=== PATIENT | female | born 1935 | race Two or more races ===

== ENCOUNTER 2024-07-09 21:16 | Inpatient (IN) | payer OTHER ==
[~2024-07-09] VITALS: Ht 154.9 cm; Wt 45.6 kg
--- NOTE | 2024-07-09 22:05 | ED.PDOC ---
History of Present Illness HPI Comments 89 y/o F is BIBA from home for G-tube replacement following dislodgement, today. Per EMS report, family called after endorsing on noticing patient's G-tube being dislodged, with some controlled mild bleeding around site area. Mechanism of dislodgement is unknown. Patient is nonverbal and nonambulatory at baseline and has no endorsed associated symptoms. Vitals were stable and within normal limits, with exception of patient being tachycardic in the 110's range. 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 Past Medical History PAST MEDICAL HISTORY: Anemia, Dementia Past Medical History (Other): PNA Surgical History: Pacemaker Surgical History (Other): PEG placement [employer]ING [employer]PARTMENT SUPERVISOR History: No Pertinent [employer]MENT SUPERVISOR History Family History Family History: Unknown Social History Smoker: Non-Smoker Alcohol: Denies ETOH Use Drugs: Denies Drug Use All Other Systems: Reviewed and Negative (Comprehensive systems review obtained and negative except for what is stated in the HPI.) Physical Exam General Appearance: No Apparent Distress, Normal HEENT: Normal ENT Inspection, Pharynx Normal, TMs Normal Neck: Full Range of Motion, Non-Tender, Normal, Normal Inspection Respiratory: Chest Non-Tender, Lungs Clear, No Accessory Muscle Use, No Respiratory Distress, Normal Breath Sounds Cardiovascular: No Edema, No JVD, No Murmur, No Gallop, Normal Peripheral Pulses, Regular Rate/Rhythm Breast Exam: Deferred Gastrointestinal: No Organomegaly, Non Tender, No Pulsatile Mass, Normal Bowel Sounds, Soft Genitalia: Deferred Pelvic: Deferred Rectal: Deferred Extremities: No calf tenderness, Normal capillary refill, Normal inspection, Normal range of motion, Non-tender, No pedal edema Musculoskeletal : Apperance: Normal Neurologic: Alert, 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 Was a procedure done?: No Differential Dx Considerations may include: G-tube dislodgment X-Ray, Labs, Meds, VS Vital Signs Date Time Temp Pulse Resp B/P (MAP) Pulse Ox O2 Delivery O2 Flow Rate FiO2 07/09/24 21:33 99.0 117 99 150/87 (108) 95 99.0 Time of 1ST Reevaluation: 22:00 Reevaluation 1ST: Unchanged Patient Education/Counseling: Other (patient is nonverbal and nonambulatory) Family Education/Counseling: Treatment, Need For Follow Up Additional Information Previous visits reviewed: August 20, 2022 encounter for acute metabolic encephalopathy The following tests were ordered, and results were reviewed by me: Additional Information was gathered from interviewing the following independent historians: EMS I reviewed and agreed with the following test results read by other providers: I discussed treatment and results with medical personnel and: family Departure 1 Departure Time of Disposition: 23:26 (Attempted to place a G-tube. However we do not have the correct G-tube size for the patient in the ER. We will admit patient for further workup and expert consultation) Impression: Primary Impression: Complication of gastrostomy tube Disposition: ADMITTED INPATIENT Admit to: Med Surg Condition: Serious e-Prescriptions No Active Prescriptions or Reported Meds Critical Care Note Critical Care Time?: No Stability Stability form required: No Heart Score Heart Score: Heart Score Response (Comments) Value History N/A 0 EKG N/A 0 Age N/A 0 Risk Factors N/A 0 Troponin N/A 0 Total 0 I personally scribed for MARY CRUZ MD ([email or web address]) on 07/09/24 at 22:05. Electronically submitted by Russell Carrillo ([email or web address]). MARY CRUZ MD July 09, 2024 22:05
[2024-07-09] MEDS: SODIUM CHLORIDE 0.9% 1,000 ML IV ONE (23:30)
[2024-07-09 23:47] LABS: Basophils # (auto) 0 10 ^3/uL (0-0.2); Basophils % (auto) 0.5 % (0.0-2.0); Eosinophils # (auto) 0.2 10 ^3/uL (0-0.8); Eosinophils % (auto) 3.7 % (0.0-7.0); Hematocrit 39.4 % (36.0-46.0); Hemoglobin 13.5 g/dL (12.2-16.2); Lymphocytes # (auto) 1.5 10 ^3/uL (0.4-5.4); Lymphocytes % (auto) 24.3 % (10.0-50.0); Mean Corpuscular Hemoglobin 31.9 pg (28.0-32.0); Mean Corpuscular Hgb Conc. 34.4 g/dL (32.0-36.0); Mean Corpuscular Volume 92.7 fL (80.0-100.0); Monocytes # (auto) 0.8 10 ^3/uL (0-1.3); Monocytes % (auto) 12.3 % (0.0-12.0); Neutrophils # (auto) 3.8 10 ^3/uL (1.6-8.6); Neutrophils % (auto) 59.2 % (37.0-80.0); Nucleated Red Blood Cells % 0.1 %; Platelet Count (auto) 162 10^3/uL (140-450); Red Blood Cells 4.25 10^6/uL (4.0-5.20); Red Cell Distribution Width 13.3 % (11.8-14.3); White Blood Cell 6.4 10^3/uL (4.4-10.8)
[2024-07-09 23:54] LABS: Anion Gap 6 (5-15); Carbon Dioxide 28 mmol/L (20-31); Chloride 102 mmol/L (98-107); Potassium 4.4 mmol/L (3.5-5.1)
[2024-07-09 23:55] LABS: Calcium 9.2 mg/dL (8.7-10.4)
[2024-07-10] VITALS (11 sets, daily range): BP systolic 100–183; BP diastolic 64–101; PULSE 66–94; RESP 12–20; TEMP 98.1–98.3; O2SAT 95–99
[2024-07-10] LABS: BUN/Creatinine Ratio 35.5 (10.0-20.0); Blood Urea Nitrogen 22 mg/dL (9-23); Glucose 87 mg/dL (74-106); Sodium 136 mmol/L (136-145)
[2024-07-10] MEDS ORDERED: ONDANSETRON HCL 4 MG/2 ML VIAL IV PRN
[2024-07-10] MEDS: LABETALOL HCL 20 MG/4 ML VL IV ONE (03:59)
--- NOTE | 2024-07-10 04:08 | DVHHP2 ---
History of Present Illness Reason for Visit: Dislodged gastrostomy tube History of Present Illness 89-year-old female presents for evaluation of dislodged gastrostomy tube. Patient with a history of dementia and nonverbal. Per ED records and personnel patient is gastrostomy tube became dislodged as reported by the caregiver. There is no trauma to the area. Past Medical History Dementia and hypertension Past Surgical History Pacemaker, PEG tube Family History Noncontributory Smoke: No ALCOHOL: none Drugs: None Review of Systems Review of Systems Unable to complete review of systems due to the patient's advanced dementia Allergies: Coded Allergies: NO KNOWN ALLERGIES (Unverified , 08/19/22) Medications Current Medications Medications Dose Ordered Sig/Delio Route Start Time Stop Time Status Last Admin Dose Admin Ondansetron HCl 4 mg Q4HP PRN IV 07/10/24 00:00 Dextrose/Sodium Chloride 1,000 ml @ 75 mls/hr [id number] IV 07/10/24 04:15 Exam Vital Signs Vital Signs Date Time Temp Pulse Resp B/P (MAP) Pulse Ox O2 Delivery O2 Flow Rate FiO2 07/10/24 03:59 90 167/87 07/09/24 21:33 99.0 99 95 99.0 Exam Gen: 89-year-old female in no apparent distress Skin: Warm, dry, normal color and texture, no rash. HEENT: Normocephalic atraumatic, mucous membranes moist and pink. Neck: Cervical and supraclavicular nodes normal without enlargement, trachea is midline, thyroid gland is normal without masses. Pulmonary: Clear to auscultation and percussion bilaterally. Cardiac: Regular rate and rhythm. No murmur Abdomen: Soft, nontender, nondistended, bowel sounds present all 4 quadrants, no guarding, no rigidity, no organomegaly. Extremities: No cyanosis, clubbing, no edema Neuro: Nonverbal Labs/Xrays Labs Test 07/09/24 23:33 Range/Units White Blood Count 6.4 4.4-10.8 10^3/uL Red Blood Count 4.25 4.0-5.20 10^6/uL Hemoglobin 13.5 12.2-16.2 g/dL Hematocrit 39.4 36.0-46.0 % Mean Corpuscular Volume 92.7 80.0-100.0 fL Mean Corpuscular Hemoglobin 31.9 28.0-32.0 pg Mean Corpuscular Hemoglobin Concent 34.4 32.0-36.0 g/dL Red Cell Distribution Width 13.3 11.8-14.3 % Platelet Count 162 140-450 10^3/uL Mean Platelet Volume 8.4 6.9-10.8 fL Neutrophils (%) (Auto) 59.2 37.0-80.0 % Lymphocytes (%) (Auto) 24.3 10.0-50.0 % Monocytes (%) (Auto) 12.3 H 0.0-12.0 % Eosinophils (%) (Auto) 3.7 0.0-7.0 % Basophils (%) (Auto) 0.5 0.0-2.0 % Neutrophils # (Auto) 3.8 1.6-8.6 10 ^3/uL Lymphocytes # (Auto) 1.5 0.4-5.4 10 ^3/uL Monocytes # (Auto) 0.8 0-1.3 10 ^3/uL Eosinophils # (Auto) 0.2 0-0.8 10 ^3/uL Basophils # (Auto) 0 0-0.2 10 ^3/uL Nucleated Red Blood Cells 0.1 % Sodium Level 136 136-145 mmol/L Potassium Level 4.4 3.5-5.1 mmol/L Chloride Level 102 98-107 mmol/L Carbon Dioxide Level 28 20-31 mmol/L Anion Gap 6 5-15 Blood Urea Nitrogen 22 9-23 mg/dL Creatinine 0.62 0.550-1.02 mg/dL Glomerular Filtration Rate Calc 86 >90 mL/min BUN/Creatinine Ratio 35.5 H 10.0-20.0 Serum Glucose 87 74-106 mg/dL Calcium Level 9.2 8.7-10.4 mg/dL Assessment/Plan Assessment/Plan Assessment Dislodged gastrostomy tube Dementia Hypertension Plan Admit the patient to [facility] to the hospitalist Radiology consult KUB pending Maintenance IV fluids Continue treatment per orders. Plan discussed with: Other My Orders Orders - BROOKLYN KIMBROUGH Procedure Category Date Status Time * Radiologist Consult CONS 07/09/24 Transmitted 23:54 Basic Metabolic Panel LAB 07/10/24 Logged 04:00 Admit ADMIT 07/09/24 Transmitted 23:54 Ondansetron Hcl PHA 07/10/24 In Process (Zofran) 00:00 Condition: Stable CHETNA 07/09/24 In Process 23:54 Maintain Bed Rest CHETNA 07/09/24 In Process 23:54 D5w/Sod Chlo 0.9% PHA 07/10/24 In Process (D5w Ns 0.9%) 04:15 Date of Service: July 09, 2024 Billing Provider: BROOKLYN KIMBROUGH Common Visit Codes: [id number] INP/OBS CARE (MOD) BROOKLYN KIMBROUGH July 10, 2024 04:08
[2024-07-10] MEDS: D5W/SOD CHLO 0.9% 1,000 ML IV SCH (04:15)
[2024-07-10 06:25] LABS: Calcium 8.9 mg/dL (8.7-10.4); Chloride 102 mmol/L (98-107); Potassium 3.8 mmol/L (3.5-5.1); Sodium 139 mmol/L (136-145)
[2024-07-10 06:26] LABS: Anion Gap 8 (5-15); Carbon Dioxide 29 mmol/L (20-31)
[2024-07-10 06:32] LABS: BUN/Creatinine Ratio 31.7 (10.0-20.0); Blood Urea Nitrogen 20 mg/dL (9-23); Glucose 92 mg/dL (74-106)
--- NOTE | 2024-07-10 06:56 | DVH ---
ABDOMINAL RADIOGRAPH Indication: abdominal pain Technique: 2 frontal radiographs of the abdomen were obtained Comparison: None FINDINGS: Lines and tubes: None There is a nonobstructive bowel gas pattern. No supine radiographic evidence of pneumoperitoneum. Com pletely dislocated left hip prosthesis. IMPRESSION: 1. Nonobstructive bowel gas pattern. 2. Completely dislocated left hip prosthesis.
[2024-07-10 07:56] LABS: INR 0.96 (0.9-1.15); Partial Thromboplastin Time 27.3 SEC (24.5-34.5); Prothrombin Time 10.2 sec (9.3-11.8)
[2024-07-10] MEDS ORDERED: ENOXAPARIN SOD 40 MG/0.4 ML SYRINGE SC SCH (10:00)
[2024-07-10] MEDS: GLUCAGON EMERG KIT 1mg/1ml IV ONE (10:15)
--- NOTE | 2024-07-10 11:13 | DVHPN2 ---
Subjective 89-year-old female with a history of dementia with g tube, tube got dislodged She is bed bound Xray showed complete left hip dislocation Changes from previous H/P or p: Changes Objective Vitals Vital Signs Date Time Temp Pulse Resp B/P (MAP) Pulse Ox O2 Delivery O2 Flow Rate FiO2 07/10/24 07:55 76 12 99 Room Air* 0 21 07/10/24 07:55 97.9 151/85 (107) 97.9 General Appearance: Alert, Other (Disoriented) Lungs: Clear to auscultation, Normal air movement Cardiovascular: Regular rate, Normal S1, Normal S2, No murmurs Abdomen: Normal bowel sounds, Soft, No tenderness Extremities: No edema Medications Current Medications Medications Dose Ordered Sig/Delio Route Start Time Stop Time Status Last Admin Dose Admin Ondansetron HCl 4 mg Q4HP PRN IV 07/10/24 00:00 Dextrose/Sodium Chloride 1,000 ml @ 75 mls/hr [id number] IV 07/10/24 04:15 07/10/24 04:15 75 MLS/HR Laboratory Results Laboratory Tests 07/09/24 23:33 07/10/24 05:24 Chemistry Test 07/09/24 23:33 07/10/24 05:24 Calcium Level 9.2 mg/dL (8.7-10.4) 8.9 mg/dL (8.7-10.4) Coagulation Test 07/10/24 05:24 Prothrombin Time 10.2 sec (9.3-11.8) Prothrombin Time INR 0.96 (0.9-1.15) Activated Partial Thromboplast Time 27.3 SEC (24.5-34.5) Assessment/Plan Assessment/Plan Dislodgement of the G-tube Complete left prosthetic hip dislocation Advanced dementia Bed-bound Hypertension Plan IR consult for replacement of the G-tube Ortho consult for left prosthetic hip dislocation IV fluids IV hydralazine p.r.n. Monitor closely DNR Discussed with her caregiver over the phone The patient was on hospice up until a year ago Advance directives discussed for 22 minutes Plan discussed with: Patient Date of Service: July 10, 2024 Billing Provider: HOMER VELEZ MD Common Visit Codes: [id number] INP/OBS CARE(HIGH) Secondary Visit Codes: [id number] CARE PLAN 30 MINUTES HOMER VELEZ MD July 10, 2024 11:13
--- NOTE | 2024-07-10 11:32 | DVH ---
CT CT AB PEL WO CON-NO ORAL OR IV INDICATION: EVALUATION OF G-TUBE TRACT EXAM DATE: 07/10/2024 10:54 AM COMPARISON: None RADIATION DOSE: CTDIvol: 5.4 mGy, DLP: 292.28 mGy*cm PROCEDURE: Helical CT images were obtained of the abdomen and pelvis without IV contrast Sagittal and coronal reconstructions are provided. ORAL CONTRAST: None. ADDITIONAL IMAGES / REFORMATS: None All C T scans at this medical facility are performed using dose modulation techniques as appropriate to a p erformed exam including the following: Automated exposure control was utilized; adjustment of the MA and/or KV according to patient size; and use of iterative reconstruction technique. FINDINGS: LUNG BASE: Bibasilar atelectasis is seen. LIVER: Normal. GALLBLADDER AND BILIARY TREE: No calcified gallstones. Normal caliber wall. No intra- or extrahepatic biliary ductal dilation. PANCREAS: Normal. SPLEEN: Normal. BOWEL: A gastrostomy tube tract is seen. Moderate colonic fecal burden. Normal appendix. ADRENALS: Normal. KIDNEYS AND URETER: Small bilateral nonobstructive kidney stones. BLADDER: Normal. REPRODUCTIVE ORGANS: 2.5 cm left ovary cyst. LYMPH NODES:No lymphadenopathy. PERITONEUM: No ascites or free air. No other fluid collection. VESSELS: Scattered atherosclerotic calcifications are noted. RETROPERITONEUM: Normal. ABDOMINAL WALL: Normal. BONES: Scattered osseous degenerative changes are noted. Left hip is completely dislocated. IMPRESSION: No acute intraabdominal abnormality. A gastrostomy tube tract is seen. Moderate colonic fecal burden. Left hip is completely dislocated. Small bilateral nonobstructive kidney stones.
[2024-07-10] MEDS: LIDOCAINE 2%HCL (LOCAL ANESTH.) INJ 20ML MDV ONE (12:43)
[2024-07-10] MEDS: IODIXANOL 320MG/ML 100ML BTL IV ONE (12:44)
[2024-07-10] MEDS: MIDAZOLAM HCL 2MG/2ML 2ml VIAL (1mg/ml) ONE (12:45)
[2024-07-10] MEDS: fentaNYL CITRATE 100 MCG/2 ML VL ONE (12:45)
--- NOTE | 2024-07-10 14:16 | DVH ---
XY PERCUTANEOUS G TUBE PL, HISTORY: G TUBE PL PROCEDURE: Informed consent was obtained. The patient was placed on the fluoroscopic table in supine position. Machine Iii Coremaker abdominal view was obtained. The epigastric area was then prepped with chlorhexidine which was allowed to dry and draped in sterile fashion. Time out was performed. IV sedation were adm inistered. A catheter and wire were used to cannalize the old G tube tract into the stomach. Contrast injection and air injection confirms location in the stomach. Over a wire, the tract was dilated to 8 mm with a balloon. The new 18 Fr balloon retention gastrostomy tube was placed into the stomach. Co ntrast and air was injected to confirm location. 5 mL was placed into the balloon retention. The cath eter was then secured to the skin and a sterile dressing applied. No immediate complication was ident ified. DAP 99 FLUOROSCOPY TIME: 3.2 minutes. CONTRAST USED: 20 mL Isovue 300. SEDATION: Dr. Yumiko Bhatia was personally responsible for the administration of moderate sedation during the procedure performed, including the use of an independent trained observer who had no other duties during the procedure. The drugs utilized were IV fentanyl and versed (see nursing log for details). The total time of supervision by the attending physician was approximately 30 minutes. FINDINGS: Completion image demonstrates G-tube in the gastric body. IMPRESSION: Replacement of 18-F balloon retention gastrostomy catheter into the stomach.
[2024-07-10] MEDS: hydrALAZINE HCL 20 MG/ML VL IV PRN (15:27)
[2024-07-10] MEDS ORDERED: ACET1SOL11 PO (21:49)
[2024-07-11] VITALS (7 sets, daily range): BP systolic 136–177; BP diastolic 81–96; PULSE 84–102; RESP 14–18; TEMP 96.9–98.3; O2SAT 95–98
--- NOTE | 2024-07-11 13:13 | DVHINCON2 ---
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 Allergies: Coded Allergies: NO KNOWN ALLERGIES (Unverified , 08/19/22) Home Meds Reported Medications Acetaminophen W/ Codeine (Tylenol W/Cod Elixir) 5 Ml So, 500 MG PO ACHS, ML 07/10/24 Review of Systems unable to obtain Vital Signs Vital Signs Date Time Temp Pulse Resp B/P (MAP) Pulse Ox O2 Delivery O2 Flow Rate FiO2 07/11/24 13:09 97.8 98 17 136/91 (106) 97 97.8 07/10/24 17:20 Room Air* 0 21 Physical Exam in bed unable to assess motor or sens shortening of left leg Labs/Diagnostic Data Labs Test 07/10/24 05:24 07/09/24 23:33 Range/Units Prothrombin Time 10.2 9.3-11.8 sec Prothrombin Time INR 0.96 0.9-1.15 Activated Partial Thromboplast Time 27.3 24.5-34.5 SEC Sodium Level 139 136-145 mmol/L Potassium Level 3.8 3.5-5.1 mmol/L Chloride Level 102 98-107 mmol/L Carbon Dioxide Level 29 20-31 mmol/L Anion Gap 8 5-15 Blood Urea Nitrogen 20 9-23 mg/dL Creatinine 0.63 0.550-1.02 mg/dL Glomerular Filtration Rate Calc 85 >90 mL/min BUN/Creatinine Ratio 31.7 H 10.0-20.0 Serum Glucose 92 74-106 mg/dL Calcium Level 8.9 8.7-10.4 mg/dL White Blood Count 6.4 4.4-10.8 10^3/uL Red Blood Count 4.25 4.0-5.20 10^6/uL Hemoglobin 13.5 12.2-16.2 g/dL Hematocrit 39.4 36.0-46.0 % Mean Corpuscular Volume 92.7 80.0-100.0 fL Mean Corpuscular Hemoglobin 31.9 28.0-32.0 pg Mean Corpuscular Hemoglobin Concent 34.4 32.0-36.0 g/dL Red Cell Distribution Width 13.3 11.8-14.3 % Platelet Count 162 140-450 10^3/uL Mean Platelet Volume 8.4 6.9-10.8 fL Neutrophils (%) (Auto) 59.2 37.0-80.0 % Lymphocytes (%) (Auto) 24.3 10.0-50.0 % Monocytes (%) (Auto) 12.3 H 0.0-12.0 % Eosinophils (%) (Auto) 3.7 0.0-7.0 % Basophils (%) (Auto) 0.5 0.0-2.0 % Neutrophils # (Auto) 3.8 1.6-8.6 10 ^3/uL Lymphocytes # (Auto) 1.5 0.4-5.4 10 ^3/uL Monocytes # (Auto) 0.8 0-1.3 10 ^3/uL Eosinophils # (Auto) 0.2 0-0.8 10 ^3/uL Basophils # (Auto) 0 0-0.2 10 ^3/uL Nucleated Red Blood Cells 0.1 % Plan/Recommendation 89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 Patient does not ambulate at baseline 2. no need for surgical intervention Plan discussed with: Patient, Other SYLVIA OSBORN MD July 11, 2024 13:13
--- NOTE | 2024-07-11 15:58 | DVHPN2 ---
Subjective More alert today s/p g-tube replacement Changes from previous H/P or p: Changes Objective Vitals Vital Signs Date Time Temp Pulse Resp B/P (MAP) Pulse Ox O2 Delivery O2 Flow Rate FiO2 07/11/24 13:09 97.8 98 17 136/91 (106) 97 97.8 07/10/24 17:20 Room Air* 0 21 Intake/Output Intake and Output 07/11/24 07:00 Intake Total 300 ml Balance 300 ml Intake Oral 0 ml IV Total 300 ml Tube Feeding 0 ml # Voids 2 General Appearance: Alert, Other (Disoriented) Lungs: Clear to auscultation, Normal air movement Cardiovascular: Regular rate, Normal S1, Normal S2, No murmurs Abdomen: Normal bowel sounds, Soft, No tenderness Extremities: No edema Medications Current Medications Medications Dose Ordered Sig/Delio Route Start Time Stop Time Status Last Admin Dose Admin Ondansetron HCl 4 mg Q4HP PRN IV 07/10/24 00:00 Dextrose/Sodium Chloride 1,000 ml @ 75 mls/hr [id number] IV 07/10/24 04:15 07/11/24 06:18 75 MLS/HR Hydralazine HCl 10 mg Q6HP PRN IV 07/10/24 11:15 07/11/24 01:29 10 MG Laboratory Results Laboratory Tests 07/09/24 23:33 07/10/24 05:24 Assessment/Plan Assessment/Plan Dislodgement of the G-tube Complete left prosthetic hip dislocation Advanced dementia Bed-bound Hypertension Plan IR consult for replacement of the G-tube Ortho consult for left prosthetic hip dislocation IV fluids IV hydralazine p.r.n. Monitor closely DNR Discussed with her caregiver over the phone The patient was on hospice up until a year ago Advance directives discussed for 22 minutes 07/11/24: Dislodgement of the G-tube: Replaced Complete left prosthetic hip dislocation: Ortho consult, recommended conservative Tx, no surgery is recommended Start feeding tonight DC plan for tomorrow Discussed with her son over the phone Plan discussed with: Son My Orders Orders - HOMER VELEZ MD Procedure Category Date Status Time * Dietary Consult CONS 07/11/24 Transmitted 11:38 Date of Service: July 11, 2024 Billing Provider: HOMER VELEZ MD Common Visit Codes: [id number] INP/OBS CARE(HIGH) HOMER VELEZ MD July 11, 2024 15:57
[2024-07-12 00:58] VITALS: BP 167/85; PULSE 104; RESP 18; TEMP 97.1; O2SAT 95
[2024-07-12 04:54] VITALS: BP 157/88; PULSE 98; RESP 18; TEMP 96.8; O2SAT 96
[2024-07-12 09:00] VITALS: BP 150/81; PULSE 101; RESP 17; TEMP 97.8; O2SAT 96
[2024-07-12 13:00] VITALS: BP 146/80; PULSE 92; RESP 17; TEMP 98.3; O2SAT 96
[2024-07-12 17:00] VITALS: BP 178/97; PULSE 88; RESP 19; TEMP 98.2; O2SAT 98
[2024-07-12 17:19] VITALS: BP 157/88; PULSE 77; TEMP 36.8
--- NOTE | 2024-07-12 18:55 | DVHDS2 ---
Discharge Summary Date of Admission July 09, 2024 at 23:54 Date of Discharge: July 12, 2024 Labs/Diagnostic Data: Laboratory Results Test 07/10/24 05:24 07/09/24 23:33 Prothrombin Time 10.2 sec (9.3-11.8) Prothrombin Time INR 0.96 (0.9-1.15) Activated Partial Thromboplast Time 27.3 SEC (24.5-34.5) Sodium Level 139 mmol/L (136-145) Potassium Level 3.8 mmol/L (3.5-5.1) Chloride Level 102 mmol/L (98-107) Carbon Dioxide Level 29 mmol/L (20-31) Anion Gap 8 (5-15) Blood Urea Nitrogen 20 mg/dL (9-23) Creatinine 0.63 mg/dL (0.550-1.02) Glomerular Filtration Rate Calc 85 mL/min (>90) BUN/Creatinine Ratio 31.7 (10.0-20.0) Serum Glucose 92 mg/dL (74-106) Calcium Level 8.9 mg/dL (8.7-10.4) White Blood Count 6.4 10^3/uL (4.4-10.8) Red Blood Count 4.25 10^6/uL (4.0-5.20) Hemoglobin 13.5 g/dL (12.2-16.2) Hematocrit 39.4 % (36.0-46.0) Mean Corpuscular Volume 92.7 fL (80.0-100.0) Mean Corpuscular Hemoglobin 31.9 pg (28.0-32.0) Mean Corpuscular Hemoglobin Concent 34.4 g/dL (32.0-36.0) Red Cell Distribution Width 13.3 % (11.8-14.3) Platelet Count 162 10^3/uL (140-450) Mean Platelet Volume 8.4 fL (6.9-10.8) Neutrophils (%) (Auto) 59.2 % (37.0-80.0) Lymphocytes (%) (Auto) 24.3 % (10.0-50.0) Monocytes (%) (Auto) 12.3 % (0.0-12.0) Eosinophils (%) (Auto) 3.7 % (0.0-7.0) Basophils (%) (Auto) 0.5 % (0.0-2.0) Neutrophils # (Auto) 3.8 10 ^3/uL (1.6-8.6) Lymphocytes # (Auto) 1.5 10 ^3/uL (0.4-5.4) Monocytes # (Auto) 0.8 10 ^3/uL (0-1.3) Eosinophils # (Auto) 0.2 10 ^3/uL (0-0.8) Basophils # (Auto) 0 10 ^3/uL (0-0.2) Nucleated Red Blood Cells 0.1 % Other Laboratory Tests 07/10/24 05:24 07/09/24 23:33 Brief Hx & Hospital Course: 89-year-old female presents for evaluation of dislodged gastrostomy tube. Patient with a history of dementia and nonverbal. Per ED records and personnel patient is gastrostomy tube became dislodged as reported by the caregiver. There is no trauma to the area. G tube malfunction got replaced Condition at Discharge: Good Final Diagnosis/Problems List G tube malfunction Discharge Disposition: Home Discharge Instruct/Medications Diet: See Comment Diet comment: G tube feeds Activity: See Comment Activity comment: Non weight bearing on left hip Follow Up/Referral: PCP in 7 days Medications: home medications Discharge Statement: "Patient was advised to return to the ER or call 911 if any headaches, dizziness, shortness of breath, chest pain, abdominal pain, bleeding, fevers, or worsening of medical condition. Patient was counseled about treatment plan, medications, possible side effects, patientverbalized understanding. All questions were answered to the best of my ability. This discharge took greater then 30 minutes in planning, reviewing documentation, counseling the patient, and discussing with other team members." ASSESSMENT ASSESSMENT Assessment G tube malfunction Date of Service: July 12, 2024 Billing Provider: IOANA STEINER MD Common Visit Codes: [id number] DISCH DAY >30min IOANA STEINER MD July 12, 2024 18:55
== END 2024-07-12 19:35 | disposition home or self-care (01) | DRG 920 ==
LOC: EDBD 21:16 → ER 21:16 → OVERFLOW 23:54 → EAST 07-10 17:22
PROVIDERS: ADMIT Hospitalist; ATTEND Hospitalist
PROC: 0DP6XUZ Removal of Feeding Device from Stomach, External Approach (ICD-10-PCS; principal; 2024-07-10)
PROC: 0DH63UZ Insertion of Feeding Device into Stomach, Percutaneous Approach (ICD-10-PCS; 2024-07-10)
DX: T85.528A Displacement of other gastrointestinal prosthetic devices, implants and grafts, initial encounter (principal); T84.021A Dislocation of internal left hip prosthesis, initial encounter; Y79.2 Prosthetic and other implants, materials and accessory orthopedic devices associated with adverse incidents; I10 Essential (primary) hypertension; F03.90 Unspecified dementia, unspecified severity, without behavioral disturbance, psychotic disturbance, mood disturbance, and anxiety; D64.9 Anemia, unspecified; R00.0 Tachycardia, unspecified; Z74.01 Bed confinement status; Z80.0 Family history of malignant neoplasm of digestive organs; Z82.49 Family history of ischemic heart disease and other diseases of the circulatory system; Z79.1 Long term (current) use of non-steroidal anti-inflammatories (NSAID); Z79.899 Other long term (current) drug therapy; Y92.89 Other specified places as the place of occurrence of the external cause
CPT/HCPCS: 36415; 43760; 74018; 74176; 80048; 85025; 85610; 85730; 96360; 99152; A4565; G0378; J2250; J7042; Q9967

== ENCOUNTER 2024-10-05 18:41 | Inpatient (IN) | payer OTHER ==
[~2024-10-05] VITALS: Ht 154.9 cm; Wt 41.6 kg
[~2024-10-05 18:41] MED LIST: ACET1SOL11 PO
[2024-10-05 19:30] VITALS: PULSE 94; RESP 12; O2SAT 99
[2024-10-05 19:30] LABS: Hematocrit 42.1 % (36.0-46.0); Hemoglobin 13.4 g/dL (12.2-16.2); Mean Corpuscular Hemoglobin 33.0 pg (28.0-32.0); Mean Corpuscular Volume 103.7 fL (80.0-100.0); Nucleated Red Blood Cells % 0.4 %
--- NOTE | 2024-10-05 19:32 | ED.PDOC ---
Altered Mental Status HPI Comments 89 year old female who came to ER via EMS for altered level of consciousness. Patient is bed-bound, nonverbal, has a history of dementia, hypertension, hepatitis-C, status post pacemaker, G-tube, and left hip surgery. 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 Was noted by family members home has been acting more altered than usual and is short of breath. Upon arrival paramedics patient is saturating at 80s, patient was ambu bagged and patient started tracking again. No fever noted. Blood sugar on scene was 130. 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 Nonverbal. Home oxygen at 3 L/min Surgical History: Pacemaker Surgical History (Other): G-tube, left hip surgery LIVE GAMES DEALER History: No Pertinent LIVE GAMES DEALER History Family History Family History: Reviewed,noncontributory to illness Social History Smoker: Non-Smoker Alcohol: Denies ETOH Use Drugs: Denies Drug Use Lives In: Home Unable to Obtain due to: Altered Mental Status, Dementia Physical Exam General Appearance: No Apparent Distress, Normal HEENT: Normal ENT Inspection, Pharynx Normal, TMs Normal Neck: Full Range of Motion, Non-Tender, Normal, Normal Inspection Respiratory: Chest Non-Tender, Lungs Clear, No Accessory Muscle Use, No Respiratory Distress, Normal Breath Sounds Cardiovascular: No Edema, No JVD, No Murmur, No Gallop, Normal Peripheral Pulses, Regular Rate/Rhythm Breast Exam: Deferred Gastrointestinal: No Organomegaly, Non Tender, No Pulsatile Mass, Normal Bowel Sounds, Soft Genitalia: Deferred Pelvic: Deferred Rectal: Deferred Extremities: No calf tenderness, Normal capillary refill, Normal inspection, Normal range of motion, Non-tender, No pedal edema Musculoskeletal : Apperance: Normal Neurologic: Alert, law reporter II-XII nml as Tested, No Motor Deficits, Normal Affect, Normal Mood, No Sensory Deficits Cerebellar Function: Normal Reflexes: Normal Skin: Dry, Normal Color, Warm Lymphatic: No Adenopathy Was a procedure done? Was a procedure done?: No Differential Diagnosis (ALOC) Differential Diagnosis: Dehydration, Hypoglycemia, Encephalopathy, Sepsis, Hypoxemia, Seizure, CVA, Mass Lesion, SAH, Renal Failure, Other (Dementia) Other Differential Diagnosis Other differentials include hypoxia, aspiration, hypoglycemia, hypotension, TIA. X-Ray, Labs, Meds, VS Vital Signs Date Time Temp Pulse Resp B/P (MAP) Pulse Ox O2 Delivery O2 Flow Rate FiO2 10/05/24 18:57 100.9 102 16 180/86 92 100.9 10/05/24 18:41 99.4 100 22 180/86 (117) 93 99.4 Lab Test 10/05/24 19:37 10/05/24 19:09 Range/Units Lactic Acid Level Pending White Blood Count 6.1 4.4-10.8 10^3/uL Red Blood Count 4.06 4.0-5.20 10^6/uL Hemoglobin 13.4 12.2-16.2 g/dL Hematocrit 42.1 36.0-46.0 % Mean Corpuscular Volume 103.7 H 80.0-100.0 fL Mean Corpuscular Hemoglobin 33.0 H 28.0-32.0 pg Mean Corpuscular Hemoglobin Concent 31.8 L 32.0-36.0 g/dL Red Cell Distribution Width 14.8 H 11.8-14.3 % Platelet Count 177 140-450 10^3/uL Mean Platelet Volume 7.7 6.9-10.8 fL Neutrophils (%) (Auto) 74.4 37.0-80.0 % Lymphocytes (%) (Auto) 12.2 10.0-50.0 % Monocytes (%) (Auto) 9.5 0.0-12.0 % Eosinophils (%) (Auto) 3.4 0.0-7.0 % Basophils (%) (Auto) 0.5 0.0-2.0 % Neutrophils # (Auto) 4.5 1.6-8.6 10 ^3/uL Lymphocytes # (Auto) 0.7 0.4-5.4 10 ^3/uL Monocytes # (Auto) 0.6 0-1.3 10 ^3/uL Eosinophils # (Auto) 0.2 0-0.8 10 ^3/uL Basophils # (Auto) 0 0-0.2 10 ^3/uL Nucleated Red Blood Cells 0.4 % Prothrombin Time 10.3 9.3-11.8 sec Prothrombin Time INR 0.97 0.9-1.15 Activated Partial Thromboplast Time 25.1 24.5-34.5 SEC Sodium Level 145 136-145 mmol/L Potassium Level 3.6 3.5-5.1 mmol/L Chloride Level 109 H 98-107 mmol/L Carbon Dioxide Level 28 20-31 mmol/L Anion Gap 8 5-15 Blood Urea Nitrogen 12 9-23 mg/dL Creatinine 0.61 0.550-1.02 mg/dL Glomerular Filtration Rate Calc 86 >90 mL/min BUN/Creatinine Ratio 19.7 10.0-20.0 Serum Glucose 132 H 74-106 mg/dL Calcium Level 8.9 8.7-10.4 mg/dL Troponin I High Sensitivity Pending Plasma/Serum Blood Alcohol Pending Time of 1ST Reevaluation: 19:22 Reevaluation 1ST: Unchanged Time of 2ND Reevaluation: 19:58 Reevaluation 2ND: Improved Patient Education/Counseling: Other (altered) Family Education/Counseling: Diagnosis, Treatment, Prognosis, Need For Follow Up, No Family Present Comments This patient was recently discharged within the last 24 hours from [facility]. For aspiration pneumonia. Patient has advanced dementia and was on hospice until last year. However the son still request the patient to be DNR and comfort measures only. The son was contacted by me via telephone in informs me that the patient suddenly became unresponsive and altered. She is on 3 L nasal cannula at home. EMS reports that patient's mentation improved on the way here. Since she has been here patient has been tracking alert but nonverbal, which is at her baseline. The workup shows the patient does fit sepsis criteria and chest x-ray shows right lower lobe infiltrate and left pleural effusion. Patient has received the sepsis order set including blood culture, antibiotics, IV fluid. Patient will be admitted to the hospital for further treatment of aspiration pneumonia transient altered mental status, and we will respect her wishes to remain DNR. Due to concerns for patients condition deteriorating, the care required my highest level of attention and readiness to intervene. I assessed the patient, reviewed the medical records, ordered the appropriate tests and treatments, then reassessed for results and responsiveness. I communicated with medical personnel and consultants and formulated a plan of care. Total critical care time excludes any procedures SEPSIS Sepsis Screen Date sepsis recognized/suspect: Oct 05, 2024 Time Sepsis recognized/suspect: 1836 Recent Procedure: No On Antibiotic Therapy: Yes Respiratory Rate >20: Yes Heart Rate >90: Yes Temp<36 C (96.8 F) or >38.3 C: Yes SBP <90 or MAP <65 mmHG: No New Acute Mental Status Change: No Is the patient on CPAP, BIPAP,: No Physician Orders Urinalysis (10/05/24 19:08) Troponin-I Hs (10/05/24 19:16) Chest Xray 1 View (10/05/24 19:16) Straight Cath. (10/05/24 ) Continuous Ekg Monitoring 08,12,16,20,00,04 (10/05/24 19:16) Electrocardigram (10/05/24 19:16) Troponin-I Hs (10/05/24 20:16) Troponin-I Hs (10/05/24 22:16) Electrocardigram (10/05/24 20:16) Electrocardigram (10/05/24 22:16) Accucheck (10/05/24 19:18) Lactated Ringer's (10/05/24 19:30) Blood Culture (10/05/24 19:18) Lactic Acid W/ Reflex Order (10/05/24 20:00) Cefepime 1gm/ 50ml (Maxipime 1gm/50ml) (10/05/24 22:00) Notify Md If Map <65 Or Bp<90 (10/05/24 19:18) If Map<65 Start Vasopressor (10/05/24 19:18) Sepsis Reassesment After Fluid (10/05/24 20:18) Household Appliance Mechanic (10/05/24 19:21) Blood Alcohol (10/05/24 19:21) Clindamycin 900mg Iv (Cleocin Iv) (10/05/24 19:30) DNR (10/05/24 19:27) Vital Signs Date Time Temp Pulse Resp B/P (MAP) Pulse Ox O2 Delivery O2 Flow Rate FiO2 10/05/24 18:57 100.9 102 16 180/86 92 100.9 10/05/24 18:41 99.4 100 22 180/86 (117) 93 99.4 Laboratory Tests Test 10/05/24 19:09 10/05/24 19:37 White Blood Count 6.1 10^3/uL (4.4-10.8) Lactic Acid Level Pending Reassessment Post Fluid SEPSIS FOCUS EXAM(REASSESSMENT Patient remains alert, tracking, breathing comfortably in no distress. Date of Reassessment: Oct 05, 2024 Time of Reassessment: 20:04 Pulse Location: Radial Pulse Strength: Normal Capillary Refill Exam: < 3 seconds Skin Temperature: Warm Skin Moisture: Dry Skin Tugor: WNL Skin Color: WNL Fingernail Color: WNL Departure 1 Departure Time of Disposition: 20:05 Impression: Primary Impression: Altered mental status Qualified Codes: R40.4 - Transient alteration of awareness Additional Impressions: Aspiration pneumonia Qualified Codes: J69.0 - Pneumonitis due to inhalation of food and vomit Sepsis Qualified Codes: A41.9 - Sepsis, unspecified organism; R65.20 - Severe sepsis without septic shock; G93.41 - Metabolic encephalopathy Disposition: ADMITTED INPATIENT Admit to: ICU Condition: Serious Discharged With: Relative Critical Care Note Critical Care Time?: Yes (35 min-critical care time only) Critical care comment: Due to concerns for patients condition deteriorating, the care required my highest level of attention and readiness to intervene. I assessed the patient, reviewed the medical records, ordered the appropriate tests and treatments, then reassessed for results and responsiveness. I communicated with medical personnel and consultants and formulated a plan of care. Total critical care time excludes any procedures. total time is 55 mins Stability Stability form required: No Heart Score Heart Score: Heart Score Response (Comments) Value History N/A 0 EKG N/A 0 Age N/A 0 Risk Factors N/A 0 Troponin N/A 0 Total 0 I personally scribed for KATHLEEN GOMEZ MD ([email or web address]) on 10/05/24 at 19:32. Electronically submitted by Ken Perdomo ([facility]). KATHLEEN GOMEZ MD Oct 05, 2024 19:32
[2024-10-05 19:34] LABS: Potassium 3.6 mmol/L (3.5-5.1)
[2024-10-05 19:35] LABS: Anion Gap 8 (5-15); Carbon Dioxide 28 mmol/L (20-31)
[2024-10-05 19:36] LABS: Calcium 8.9 mg/dL (8.7-10.4)
[2024-10-05 19:40] LABS: BUN/Creatinine Ratio 19.7 (10.0-20.0); Blood Urea Nitrogen 12 mg/dL (9-23)
[2024-10-05 19:41] LABS: Chloride 109 mmol/L (98-107); Glucose 132 mg/dL (74-106); Sodium 145 mmol/L (136-145)
[2024-10-05 19:43] LABS: INR 0.97 (0.9-1.15); Partial Thromboplastin Time 25.1 SEC (24.5-34.5); Prothrombin Time 10.3 sec (9.3-11.8)
--- NOTE | 2024-10-05 19:57 | DVH ---
CHEST RADIOGRAPH Indication: altered Technique: Single frontal view of the chest was obtained Comparison: XY KUB ABDOMEN SINGLE VIEW on DOS: 07/10/24, XY CHEST PORTABLE on DOS: 08/24/22, XY CHEST P ORTABLE on DOS: 08/21/22 FINDINGS: Lines and Tubes: Dual-chamber pacemaker in place with pulse generator over the right chest. Lungs: Scarring or atelectasis right upper lung field. This was not present on the previous study of 08/24/2022 Pleura: No effusion. No pneumothorax. Cardiomediastinal contours: Unremarkable Bones: No acute osseous abnormality. IMPRESSION: 1. Pacemaker in place 2. Atelectasis or scarring in the right upper lung field.
[2024-10-05] MEDS: LACTATED RINGER'S 1,450 ML IV ONE (20:12)
[2024-10-05] MEDS: LABETALOL HCL 20 MG/4 ML VL IV ONE (20:27)
[2024-10-05] MEDS: CLINDAMYCIN 900MG IV 50 ML IV ONE (20:30)
[2024-10-05 20:34] LABS: Urine Protein, UAD 1+ (Negative)
[2024-10-05] MEDS: CEFEPIME 1GM/ 50ML 50 ML IV SCH (21:32)
[2024-10-05] MEDS ORDERED: ACETAMINOPHEN 500 MG TAB or CAP PO PRN (21:45)
[2024-10-05] MEDS ORDERED: VANCOMYCIN PER PHARMACY 0 MG IV SCH (21:45)
[2024-10-05] MEDS ORDERED: MORPHINE SULFATE INJ 2 MG/ml SYRG IV PRN (21:45)
--- NOTE | 2024-10-05 22:03 | DVHHPRES ---
History of Present Illness Resident Creating Document: BECK PLATA RESIDENT History of Present Illness This is a 89-year-old female with hypertension, dementia, bed-bound status, failure to thrive status post G-tube, recent pneumonia who was biba with a chief complaint of shortness of breaths and cough. Patient is A&O times 0, likely baseline. Per son Mr Lanier, over the phone, patient was recently hospitalized at [facility] for aspiration pneumonia and was discharged after a week earlier this morning, patient went home and started having cough with mucus which was dark brown/blood-tinged, she was having difficulty breathing, patient also had lower extremity swelling, she took amoxicillin earlier this morning. Patient was also running low-grade fever at 99 F. family decided to call 911 and patient was brought to the ER. Past medical history: hypertension, dementia, bed-bound status, failure to thrive status post G-tube, recent pneumonia Past surgical history: Unknown Home medications: Amoxicillin, Tylenol, other unknown. Son does not remember home meds or past surgical history. Social history: Lives with son, does not smoke or drink Smoke: No ALCOHOL: none Drugs: None Lives: with Family Review of Systems Review of Systems Could not be obtained as patient is altered Allergies: Coded Allergies: NO KNOWN ALLERGIES (Unverified , 08/19/22) Medications Current Medications Medications Dose Ordered Sig/Delio Route Start Time Stop Time Status Last Admin Dose Admin Cefepime HCl 50 ml @ 12.5 mls/hr Q8HR IV 10/05/24 22:00 10/05/24 21:32 12.5 MLS/HR Vancomycin HCl 0 ml @ 0 mls/hr UD IV 10/05/24 21:45 UNV Albuterol 2.5 mg Q6HWA [facility] 10/05/24 21:45 UNV Ipratropium Sayner 0.5 mg Q6HWA [facility] 10/05/24 21:45 UNV Carvedilol 6.25 mg Q12HR PO 10/05/24 22:00 UNV Acetaminophen 500 mg Q4HPRN PRN PO 10/05/24 21:45 UNV Morphine Sulfate 1 mg Q4HPRN PRN IV 10/05/24 21:45 UNV Losartan Potassium 25 mg DAILY PO 10/06/24 10:00 UNV Exam Vital Signs Vital Signs Date Time Temp Pulse Resp B/P (MAP) Pulse Ox O2 Delivery O2 Flow Rate FiO2 10/05/24 21:23 77 151/75 10/05/24 21:00 11 100 10/05/24 18:57 100.9 100.9 Exam Elderly frail-appearing female patient lying in bed, no acute distress. Patient is not following commands. General: Frail-appearing, afebrile, palor, mucosae are moist Cardiovascular: Regular S1 and S2. No murmurs, gallops or rubs. No JVD elevation. No pedal edema Respiratory: Bilateral decreased breath sounds heard on auscultation. Abdomen: Soft, nondistended, normoactive bowel sounds, no rebound tenderness, no organomegaly, no masses Genitourinary: Deferred MSK/skin: Moving upper extremities, lower extremities are contracted and flexed, Neurological: Neuro exam could not be completed Psych/Mental Status: A/Ox0 Labs/Xrays Labs Test 10/05/24 20:12 10/05/24 20:00 10/05/24 19:37 10/05/24 19:09 Range/Units Urine Color Yellow Yellow Urine Clarity Clear Clear Urine pH 6.0 5.0-9.0 Urine Specific Aubrey 1.019 1.001-1.035 Urine Protein 1+ H Negative Urine Ketones Trace Negative Urine Blood 3+ H Negative /uL Urine Nitrite Negative Negative Urine Bilirubin Negative Negative Urine Urobilinogen Normal Negative mg/dL Urine Leukocyte Esterase Trace Negative /uL Urine RBC 271 0 - 4 /hpf Urine Microscopic WBC 8 H 0-5 /HPF Urine Squamous Epithelial Cells None seen <5 /hpf Urine Calcium Oxalate Crystals Few None Seen Urine Bacteria None seen None Seen /hpf Urine Mucus Few None Seen Urine Glucose Normal Normal mg/dL Troponin I High Sensitivity 54 *H </=34 ng/L Lactic Acid Level 0.9 0.4-2.0 mmol/L White Blood Count 6.1 4.4-10.8 10^3/uL Red Blood Count 4.06 4.0-5.20 10^6/uL Hemoglobin 13.4 12.2-16.2 g/dL Hematocrit 42.1 36.0-46.0 % Mean Corpuscular Volume 103.7 H 80.0-100.0 fL Mean Corpuscular Hemoglobin 33.0 H 28.0-32.0 pg Mean Corpuscular Hemoglobin Concent 31.8 L 32.0-36.0 g/dL Red Cell Distribution Width 14.8 H 11.8-14.3 % Platelet Count 177 140-450 10^3/uL Mean Platelet Volume 7.7 6.9-10.8 fL Neutrophils (%) (Auto) 74.4 37.0-80.0 % Lymphocytes (%) (Auto) 12.2 10.0-50.0 % Monocytes (%) (Auto) 9.5 0.0-12.0 % Eosinophils (%) (Auto) 3.4 0.0-7.0 % Basophils (%) (Auto) 0.5 0.0-2.0 % Neutrophils # (Auto) 4.5 1.6-8.6 10 ^3/uL Lymphocytes # (Auto) 0.7 0.4-5.4 10 ^3/uL Monocytes # (Auto) 0.6 0-1.3 10 ^3/uL Eosinophils # (Auto) 0.2 0-0.8 10 ^3/uL Basophils # (Auto) 0 0-0.2 10 ^3/uL Nucleated Red Blood Cells 0.4 % Prothrombin Time 10.3 9.3-11.8 sec Prothrombin Time INR 0.97 0.9-1.15 Activated Partial Thromboplast Time 25.1 24.5-34.5 SEC Sodium Level 145 136-145 mmol/L Potassium Level 3.6 3.5-5.1 mmol/L Chloride Level 109 H 98-107 mmol/L Carbon Dioxide Level 28 20-31 mmol/L Anion Gap 8 5-15 Blood Urea Nitrogen 12 9-23 mg/dL Creatinine 0.61 0.550-1.02 mg/dL Glomerular Filtration Rate Calc 86 >90 mL/min BUN/Creatinine Ratio 19.7 10.0-20.0 Serum Glucose 132 H 74-106 mg/dL Calcium Level 8.9 8.7-10.4 mg/dL Plasma/Serum Blood Alcohol < 3.0 <10 mg/dL SEPSIS Sepsis Screen Date sepsis recognized/suspect: Oct 05, 2024 Time Sepsis recognized/suspect: 1836 Recent Procedure: No On Antibiotic Therapy: Yes Respiratory Rate >20: Yes Heart Rate >90: Yes Temp<36 C (96.8 F) or >38.3 C: Yes SBP <90 or MAP <65 mmHG: No New Acute Mental Status Change: No Is the patient on CPAP, BIPAP,: No Physician Orders Chest Xray 1 View (10/05/24 19:16) Straight Cath. (10/05/24 ) Continuous Ekg Monitoring 08,12,16,20,00,04 (10/05/24 19:16) Electrocardigram (10/05/24 19:16) Troponin-I Hs (10/05/24 22:16) Electrocardigram (10/05/24 20:16) Electrocardigram (10/05/24 22:16) Accucheck (10/05/24 19:18) Blood Culture (10/05/24 19:18) Cefepime 1gm/ 50ml (Maxipime 1gm/50ml) (10/05/24 22:00) Notify Md If Map <65 Or Bp<90 (10/05/24 19:18) If Map<65 Start Vasopressor (10/05/24 19:18) Sepsis Reassesment After Fluid (10/05/24 20:18) Crime Scene Investigator (10/05/24 19:21) DNR (10/05/24 19:27) Bolivar Catheters (10/05/24 ) Admit (10/05/24 21:22) Electrocardigram (10/05/24 21:22) Vancomycin Per Pharmacy (10/05/24 21:45) B-Type Natriuretic Peptide (10/05/24 21:32) Urine Bacterial Culture (10/05/24 21:32) Mrsa Screen (10/05/24 21:32) Covid19 Antigen Shantal (10/05/24 ) Rapid Influenza A&B (10/05/24 21:32) Bed Rest With Hob At 30-45 Deg (10/05/24 21:32) Npo (Nothing By Mouth) Diet (10/06/24 Breakfast) Respiratory Culture W/ Gs (10/05/24 21:32) Albuterol Medneb (Ventolin Medneb) (10/05/24 21:45) Ipratropium Medneb (Atrovent Medneb) (10/05/24 21:45) Carvedilol Tablet (Coreg Tablet) (10/05/24 22:00) Acetaminophen Tab Or Cap (Tylenol Tablet (10/05/24 21:45) Morphine Sulfate Injection (10/05/24 21:45) Hepatic Panel (10/05/24 21:39) Magnesium (10/05/24 21:39) Kub Abdomen Single View (10/05/24 21:39) Losartan Tablet (Cozaar Tablet) (10/05/24 21:45) Losartan Tablet (Cozaar Tablet) (10/06/24 10:00) Sequential Compression Device (10/05/24 21:40) Bladder Scan (10/05/24 ) Vital Signs Date Time Temp Pulse Resp B/P (MAP) Pulse Ox O2 Delivery O2 Flow Rate FiO2 10/05/24 21:23 77 151/75 10/05/24 21:00 76 11 151/75 (100) 100 10/05/24 20:27 97 201/113 10/05/24 20:21 100 11 201/113 (142) 99 10/05/24 18:57 100.9 102 16 180/86 92 100.9 10/05/24 18:41 99.4 100 22 180/86 (117) 93 99.4 Laboratory Tests Test 10/05/24 19:09 10/05/24 19:37 White Blood Count 6.1 10^3/uL (4.4-10.8) Lactic Acid Level 0.9 mmol/L (0.4-2.0) Medications Medications Dose Ordered Sig/Delio Route Start Time Stop Time Status Last Admin Dose Admin Cefepime HCl 50 ml @ 12.5 mls/hr Q8HR IV 10/05/24 22:00 10/05/24 21:32 12.5 MLS/HR Clindamycin Phosphate 50 ml @ 50 mls/hr ONCE ONCE IV 10/05/24 19:30 10/05/24 20:29 DC 10/05/24 20:30 50 MLS/HR Labetalol HCl 10 mg ONCE ONCE IV 10/05/24 20:30 10/05/24 20:31 DC 10/05/24 20:27 10 MG Lactated Ringer's 1,450 ml @ 1,450 mls/hr ONCE ONCE IV 10/05/24 19:30 10/05/24 20:22 DC 10/05/24 20:12 1,450 MLS/HR Reassessment Post Fluid Date of Reassessment: Oct 05, 2024 Time of Reassessment: 20:04 Pulse Location: Radial Pulse Strength: Normal Capillary Refill Exam: < 3 seconds Skin Temperature: Warm Skin Moisture: Dry Skin Tugor: WNL Skin Color: WNL Fingernail Color: WNL Assessment/Plan Assessment/Plan Hypertensive crisis NSTEMI likely due to above Received IV labetalol Started Coreg 6.25 b.i.d. Home medication per med rec losartan started Telemetry unit EKG Troponin R/O PE wells-4, immobilized, tachycardic EKG showing T-wave and Q-wave inversion in lead 3, heart rate 95 ct angio negative for PE DC Lovenox 1 milligram/kg b.i.d. prophylactic Sirs secondary to Likely aspiration pneumonia with parapneumonic effusion Gram-positive and Gram-negative pneumonia Acute hypoxic respiratory failure secondary to above ALOC secondary to above IV vanc and cefepime 10/05 LR 30 mL/kg bolus given by ER Sputum culture, blood culture, COVID, flu testing pending Currently on 2-3 L oxygen per nasal cannula Likely acute urinary retention Bolivar placed, 300 cc in catheter Macrocytic anemia B12/folic/vitamin-D level pending Dementia ? Unspecified Bed-bound status Failure to thrive status post PEG tube placement SCDs Lovenox 40 mg sc daily NPO for now, consider resuming PEG tube feedings Accu-Cheks Admitted to telemetry unit Plan discussed with patient's son rosa over the phone in which all questions have been answered Goals of care discussed with patient's son, DNR status Case discussed with Dr. Johnson Plan discussed with: Son (Over the phone) My Orders Orders - BECK PLATA RESIDENT Procedure Category Date Status Time Admit ADMIT 10/05/24 Transmitted 21:22 Electrocardigram EKG 10/05/24 Logged 21:22 Vancomycin Per [facility] 10/05/24 Logged Pharmacy 21:45 B-Type Natriuretic LAB 10/05/24 In Process Peptide 21:32 Urine Bacterial REMEDIOS 10/05/24 Logged Culture 21:32 Mrsa Screen REMEDIOS 10/05/24 Logged 21:32 Covid19 Antigen Shantal LAB 10/05/24 Logged Rapid Influenza A&B LAB 10/05/24 Logged 21:32 Bed Rest With Hob At [facility] 10/05/24 In Process 30-45 Deg 21:32 Npo (Nothing By DIET 10/06/24 Transmitted Mouth) Diet Breakfast Respiratory Culture REMEDIOS 10/05/24 Logged W/ Gs 21:32 Albuterol Medneb [facility] 10/05/24 Logged (Ventolin Medneb) 21:45 Ipratropium Medneb [facility] 10/05/24 Logged (Atrovent Medneb) 21:45 Carvedilol Tablet PH[facility] 10/05/24 Logged (Coreg Tablet) 22:00 Acetaminophen Tab Or PHA 10/05/24 Logged Cap (Tylenol Tablet 21:45 Morphine Sulfate PHA 10/05/24 Logged Injection 21:45 Hepatic Panel LAB 10/05/24 In Process 21:39 Magnesium LAB 10/05/24 In Process 21:39 Kub Abdomen Single XY 10/05/24 Logged View 21:39 Losartan Tablet PH[facility] 10/05/24 Logged (Cozaar Tablet) 21:45 Losartan Tablet PHA 10/06/24 Logged (Cozaar Tablet) 10:00 Sequential CHETNA 10/05/24 In Process Compression Device 21:40 Bladder Scan ED NURSING 10/05/24 Transmitted Date of Service: Oct 05, 2024 Billing Provider: CHRISTINE JOHNSON MD Common Visit Codes: [id number] INP/OBS CARE (HIGH) BECK PLATA RESIDENT Oct 05, 2024 22:03
[2024-10-05 22:10] LABS: Alanine Aminotransferase 14 U/L (7-40); Alkaline Phosphatase 59 U/L (46-116); Magnesium 2.2 mg/dL (1.6-2.6)
[2024-10-05 22:11] LABS: Albumin 3.9 g/dL (3.2-4.8); Bilirubin, Direct < 0.1 mg/dL (<0.3); Bilirubin, Total 0.2 mg/dL (0.2-1.0); Total Protein 6.5 g/dL (5.7-8.2)
[2024-10-05 22:20] VITALS: PULSE 83; RESP 10; O2SAT 100
[2024-10-05] MEDS: ALBUTEROL SULF 2.5 MG/0.5ML(0.5%) NEB SOLN NEB SCH (22:20)
[2024-10-05] MEDS: IPRATROPIUM BROM 0.5 MG/2.5ML INH SOL NEB SCH (22:20)
[2024-10-05 22:26] VITALS: PULSE 83; RESP 12; O2SAT 100
[2024-10-05 22:30] VITALS: BP 180/87; PULSE 83; RESP 12; TEMP 99.3; O2SAT 100
[2024-10-05 22:30] LABS: COVID19 ANTIGEN SOFIA FIA NEGATIVE (NEGATIVE)
[2024-10-05] MEDS: CARVEDILOL 3.125 MG TAB PO SCH (22:42)
[2024-10-05] MEDS: LOSARTAN POTASSIUM 25 MG TAB PO ONE (22:43)
[2024-10-06] VITALS (10 sets, daily range): PULSE 88–103; RESP 12–16; O2SAT 96–100
[2024-10-06] MEDS: FUROSEMIDE 20 MG/2 ML VIAL IV ONE
[2024-10-06] MEDS: VANCOMYCIN 1.25GM/250ML 250 ML IV ONE ×2 (00:15→01:49)
--- NOTE | 2024-10-06 01:00 | DVH ---
Bilateral lower extremity venous duplex Clinical History: r/o dvt Comparison: None Technique: Duplex Doppler evaluation of the deep venous systems of both lower extremities from the common femora l veins to the popliteal veins including color Doppler and spectral/pulsed waveform analysis was perf ormed. Findings: RIGHT SIDE: The common femoral vein demonstrates appropriate compressibility and waveform variability. There is compressibility/patency of the great saphenous vein at the proximal thigh. The femoral vein demonstrates appropriate compressibility and waveform variability. The deep femoral vein demonstrates appropriate compressibility and waveform variability. The popliteal and posterior tibial veins demonstrate appropriate compressibility and waveform variabi lity. LEFT SIDE: The common femoral vein demonstrates appropriate compressibility and waveform variability. There is compressibility/patency of the great saphenous vein at the proximal thigh. The femoral vein demonstrates appropriate compressibility and waveform variability. The deep femoral vein demonstrates appropriate compressibility and waveform variability. The popliteal and posterior tibial veins demonstrate appropriate compressibility and waveform variabi lity. Impression: 1. No right or left femoropopliteal venous thrombosis.
[2024-10-06] MEDS: ENOXAPARIN SOD 100 MG/1 ML SYRINGE SC ONE (01:48)
[2024-10-06] MEDS: IOHEXOL 350 MG/ML 100ML IJ ONE (02:46)
--- NOTE | 2024-10-06 04:16 | DVH ---
Exam: XY KUB ABDOMEN SINGLE VIEW Indication: stool burden Comparison: CT CT AB PEL WO CON-NO ORAL OR IV on DOS: 07/10/24, XY KUB ABDOMEN SINGLE VIEW on DOS: 06/14 10/07, US ABDOMEN COMPLETE SONOGRAM on DOS: 08/26/22 Technique: Supine AP views of the abdomen were performed. Findings: No abnormal bowel dilatation. Gas is present throughout the colon. No significant fecal retention in the colon. There is residual iodinated contrast in the urinary tract. There are bilateral lung base i nfiltrates and/or effusions, not fully imaged here. 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 Ther e is thoracolumbar degenerative disc disease and mild levoscoliosis. There is a chronic appearing mil d inferior endplate compression fracture of T12. Impression: 1. No evidence of bowel obstruction. 2. No significant fecal retention in the colon. 3. 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 Recommend orthopedic surgery consultation if this is not already known.
--- NOTE | 2024-10-06 04:25 | DVH ---
EXAM: CT CT ANGIO CHEST CONTRAST HISTORY: 89-year-old female with sob, hemoptysis, tachycardia, pneumonia and r/o pe, hypertension, he patitis C, dementia. COMPARISON: Chest x-ray from the previous day. TECHNIQUE: Helical CT images of the chest were performed with IV contrast using pulmonary CTA protoco l. Sagittal and coronal reformatted images and 3D MIP images were obtained. This CT exam was performe d using 1 or more of the following dose reduction techniques: Automated exposure control, adjustment of the mA and/or kv according to patient size, or the use of iterative reconstruction techniques. Rad iation Dose: Chest: CTDI volume is 17.76 mGy. Dose-length product is 439.78 mGy*cm. FINDINGS: No pulmonary arterial filling defects are identified. There are moderate bilateral pleural effusions with bilateral lower lobe atelectasis, slightly greater on the right. There is platelike at electasis and/or scarring in the bilateral upper lobes and lingula. No pneumothorax. No suspicious me diastinal or axillary adenopathy. The heart is borderline enlarged. There are coronary artery calcifi cations. There is a right chest pacemaker. No thoracic aortic aneurysm or dissection. There is border line ectasia of the central pulmonary arteries. There is subcutaneous edema of the right upper chest and base of neck, with probable catheter in the subcutaneous fat of the right supraclavicular region (images 1-15, series 2). There is mild left hydronephrosis, not fully imaged here. There is a chronic appearing inferior endplate compression fracture of T12. There is [id number] lower thoracic d egenerative disc disease. There is mild thoracolumbar levoscoliosis. IMPRESSION: 1. No evidence of pulmonary embolism. 2. Moderate bilateral effusions and bilateral atelectasis, slightly greater on the right. 3. Coronary artery disease and Borderline cardiomegaly. 4. Probable percutaneous catheter with tip located in the right supraclavicular subcutaneous fat, wit h associated soft tissue swelling and mild subcutaneous emphysema. Recommend removal of this catheter if the tip is meant to be intravascular. 5. Mild left hydronephrosis, new versus CT scan of the abdomen dated 07/10/2024. The left kidney and ureter are not fully imaged here. Consider follow-up noncontrast CT scan of the abdomen and pelvis to evaluate for possible obstructing urolithiasis.
[2024-10-06] MEDS: CARVEDILOL 3.125 MG TAB GT ONE (05:26)
[2024-10-06 06:45] LABS: Hematocrit 38.6 % (36.0-46.0); Hemoglobin 13.1 g/dL (12.2-16.2); Mean Corpuscular Hemoglobin 32.2 pg (28.0-32.0); Mean Corpuscular Volume 95.2 fL (80.0-100.0); Nucleated Red Blood Cells % 0.1 %
[2024-10-06] MEDS: hydrALAZINE HCL 20 MG/ML VL IV ONE (06:50)
[2024-10-06 06:59] LABS: Alanine Aminotransferase 13 U/L (7-40); Albumin 3.7 g/dL (3.2-4.8); Alkaline Phosphatase 55 U/L (46-116); Anion Gap 9 (5-15); BUN/Creatinine Ratio 20.3 (10.0-20.0); Blood Urea Nitrogen 12 mg/dL (9-23); Calcium 9.0 mg/dL (8.7-10.4); Carbon Dioxide 32 mmol/L (20-31); Chloride 106 mmol/L (98-107); Glucose 115 mg/dL (74-106); Potassium 3.7 mmol/L (3.5-5.1); Sodium 147 mmol/L (136-145); Total Protein 6.7 g/dL (5.7-8.2)
[2024-10-06 07:04] LABS: Bilirubin, Total 0.3 mg/dL (0.2-1.0)
--- NOTE | 2024-10-06 08:37 | DVHPNRES ---
Progress Note Date Seen: Oct 06, 2024 Resident Creating Document: MELISSA THORPE RESDIENT Medical Necessity Reason Pt with a Central, PICC or Fol: No Subjective Review of Systems This is a 89-year-old female with hypertension, dementia, bed-bound status, failure to thrive status post G-tube, recent pneumonia who was biba with a chief complaint of shortness of breaths and cough. Patient is A&O times 0, likely baseline. Per son Mr Lanier, over the phone, patient was recently hospitalized at [facility] for aspiration pneumonia and was discharged after a week earlier this morning, patient went home and started having cough with mucus which was dark brown/blood-tinged, she was having difficulty breathing, patient also had lower extremity swelling, she took amoxicillin earlier this morning. Patient was also running low-grade fever at 99 F. family decided to call 911 and patient was brought to the ER. Past medical history: hypertension, dementia, bed-bound status, failure to thrive status post G-tube, recent pneumonia Past surgical history: Unknown Home medications: Amoxicillin, Tylenol, other unknown. Son does not remember home meds or past surgical history. Social history: Lives with son, does not smoke or drink Patient seen and examined at the bedside. Patient is nonverbal and can not communicate. Patient is lying on the bed with mild respiratory distress. Objective vital signs Vital Sign Date Time Temp Pulse Resp B/P (MAP) Pulse Ox O2 Delivery O2 Flow Rate FiO2 10/06/24 08:00 95 10/06/24 07:29 16 97 Nasal Cannula* 1 10/06/24 06:50 187/78 10/06/24 03:24 97.5 97.5 Total Intake and Output 10/05/24 10/05/24 10/06/24 15:00 23:00 07:00 Intake Total 62.5 ml 37.5 ml Output Total 900 ml Balance 62.5 ml -862.5 ml medications Current Medications Medications Dose Ordered Sig/Delio Route Start Time Stop Time Status Last Admin Dose Admin Cefepime HCl 50 ml @ 12.5 mls/hr Q8HR IV 10/05/24 22:00 10/06/24 06:13 12.5 MLS/HR Vancomycin HCl 0 ml @ 0 mls/hr UD IV 10/05/24 21:45 UNV Albuterol 2.5 mg Q6HWA NEB 10/05/24 21:45 10/06/24 06:25 2.5 MG Ipratropium [place] 0.5 mg Q6HWA NEB 10/05/24 21:45 10/06/24 06:25 0.5 MG Carvedilol 6.25 mg Q12HR PO 10/05/24 22:00 10/05/24 22:42 6.25 MG Acetaminophen 500 mg Q4HPRN PRN PO 10/05/24 21:45 Morphine Sulfate 1 mg Q4HPRN PRN IV 10/05/24 21:45 Losartan Potassium 25 mg DAILY PO 10/06/24 10:00 Furosemide 20 mg DAILY IV 10/06/24 10:00 Enoxaparin Sodium 40 mg DAILY SC 10/06/24 10:00 Examination General Appearance: Patient is nonverbal, can not communicate HEENT: Atraumatic, PERRLA, EOMI, Mucous membrane moist/pink Respiratory: Bilateral lower zone decreased breath sounds with crackles Cardiovascular: Regular rate, Normal S1, Normal S2, No murmurs, no chest wall tenderness Abdominal: Normal bowel sounds, Soft, No tenderness, No hepatospenomegaly, No masses Extremities: Bilateral lower limbs are contracted Skin: No rashes, No breakdown, No significant lesion Neuro: Normal gait, Normal speech, Strength at 5/5 X4 ext, Normal tone, Sensation intact, Cranial nerves 3-12 NL, Reflexes 2+ Psych/Mental Status: Mental status NL, Mood NL laboratory and microbiology Laboratory Tests 10/06/24 06:34 Test 10/06/24 06:34 Range/Units Serum Glucose 115 H 74-106 mg/dL Labs and/or images reviewed: Labs reviewed by me, Image(s) reviewed by me Problem List/Assessment/Plan Problem List/Assessment/Plan Acute on chronic metabolic encephalopathy, likely due to pneumonia Aspiration pneumonia Pneumonia, likely due to Gram-positive/Gram-negative/viral Hypertensive urgency NSTEMI likely due to above Sirs secondary to Likely aspiration pneumonia with parapneumonic effusion Gram-positive and Gram-negative pneumonia Acute hypoxic respiratory failure secondary to above Likely acute urinary retention Macrocytic anemia Dementia ? Unspecified Bed-bound status Failure to thrive status post PEG tube placement Ruled out DVT * CT scan shows moderate right-sided pleural effusion with small left side pleural effusion Plan/recommendation: * Vancomycin and cefepime * IV fluid * Check MRSA, sputum/blood culture * Consulted due Radiology for thoracentesis DIET: Glucerna through G-tube DVT PROPHYLAXIS: Lovenox CODE STATUS: Goal of care discussed for more than 18 minutes, DNR DISPOSITION: Med/surge Patient's status and plan discussed with the patient son through the phone. Case discussed with Dr. Sorto. Plan discussed with: Patient, Other Date of Service: Oct 06, 2024 Billing Provider: SHELLEY SORTO MD Common Visit Codes: [id number] INP/OBS CARE(HIGH) BRANDEEKAMILLAMELISSA ORELLANA RESDIENT Oct 06, 2024 08:37 SHELLEY SORTO MD Oct 06, 2024 23:04
[2024-10-06] MEDS: SODIUM CHLORIDE 0.9% 250 ML IV ONE (08:45)
--- NOTE | 2024-10-06 09:36 | DVH ---
Exam: CT CT AB PEL WO CON-NO ORAL OR IV History: Renal stone Comparison Study: CT CT AB PEL WO CON-NO ORAL OR IV on DOS: 07/10/24, US ABDOMEN COMPLETE SONOGRAM on DOS: 08/26/22 Technique: Multidetector spiral CT of the abdomen was performed from lung bases to pubic symphysis. I maging was performed without IV contrast. Axial, coronal and sagittal multiplanar reformats were obta ined from the axial data set by the technologist. Radiation Dose : 1. Abdomen/Pelvis: CTDIvol 10.39 mGy, DLP 534.02 mGy*cm. Findings: Evaluation of solid organs is limited due to lack of intravenous contrast use. Lung Bases: Cardiomegaly. Coronary artery calcifications. Vascular calcifications of the aorta. Moder ate right and small left pleural effusion. Liver: The liver is normal in size. No focal lesions. Gallbladder and Biliary Tree: Unremarkable Spleen: Unremarkable Pancreas: The pancreas is grossly normal in appearance. Adrenal Glands: Unremarkable Kidneys: Kidneys are grossly normal without calculi or hydronephrosis. Bladder: Bladder is decompressed with a Bolivar catheter and cannot be adequately assessed. Bowel: The stomach is grossly normal in appearance. Small bowel and colon are normal in caliber and d istribution. The appendix is not visualized; however, no secondary findings of acute appendicitis aubree ntified. Ascites: Absent Lymphadenopathy: No mesenteric, retroperitoneal or periportal lymphadenopathy. Abdominal Wall and Mesentery: Unremarkable. Vasculature: The visualized abdominal aorta is normal in size and caliber. There is extensive athero sclerotic calcification of the aorta and its branches. Evaluation of abdominal and pelvic vessels is limited due to lack of intravenous contrast. Pelvic Organs: Unremarkable Musculoskeletal: No aggressive focal bony lesions, acute fractures or dislocation. Left hip arthropla sty. IMPRESSION: Evaluation of solid organs and abdominal/pelvic vessels is limited due to lack of intravenous contras t. Cardiomegaly with extensive atherosclerotic calcification of the coronary arteries, aorta, and its br anches. Moderate right and small left pleural effusion. Kidneys are grossly normal without calculi or hydronephrosis. No mesenteric, retroperitoneal or periportal lymphadenopathy. No acute fracture or dislocation. Left hip arthroplasty. No acute finding in the abdomen and pelvis. Radiation optimization: All CT scans at this facility use at least one of these dose optimization luana hniques: automated exposure control mA and/or kV adjustment per patient size (includes targeted exam s where dose is matched to clinical indication) or iterative reconstruction.
[2024-10-06] MEDS ORDERED: ENOXAPARIN SOD 100 MG/1 ML SYRINGE SC SCH (10:00)
[2024-10-06] MEDS ORDERED: LOSARTAN POTASSIUM 25 MG TAB PO SCH (10:00)
[2024-10-06] MEDS: FUROSEMIDE 20 MG/2 ML VIAL IV SCH (10:00)
[2024-10-06] MEDS: ENOXAPARIN SOD 40 MG/0.4 ML SYRINGE SC SCH (10:00)
[2024-10-06] MEDS: LOSARTAN POTASSIUM 25 MG TAB PO ONE (10:30)
[2024-10-06] MEDS: SODIUM CHLORIDE 0.9% 500 ML IV ONE (10:30)
[2024-10-06] MEDS: Glucerna 1.2 Cal 1Liter BOTTLE GT SCH (13:40)
[2024-10-06] MEDS: CEFEPIME 1GM/ 50ML 50 ML IV SCH (23:39)
[2024-10-07] VITALS (10 sets, daily range): BP systolic 121; BP diastolic 57; PULSE 82–95; RESP 12–20; TEMP 98; O2SAT 95–100
[2024-10-07] MEDS: VANCOMYCIN 1GM/250ML KIT 250 ML IV SCH (03:39)
[2024-10-07 06:56] LABS: Hematocrit 38.4 % (36.0-46.0); Hemoglobin 12.8 g/dL (12.2-16.2); Mean Corpuscular Hemoglobin 31.8 pg (28.0-32.0); Mean Corpuscular Volume 95.6 fL (80.0-100.0); Nucleated Red Blood Cells % 0.1 %
--- NOTE | 2024-10-07 08:26 | DVHSR ---
APPROVED REPORT EXAM: Two-dimensional and M-mode echocardiogram with Doppler and color Doppler. Blood Pressure: 187/78 mmHg INDICATION Likely CHF RISK FACTORS Height: 5' 1", Weight: 130 DIMENSIONS LVDd3.9 (3.8-5.7cm)LA (2D)2.5 (1.9-4.0cm)Aortic Root3.3 (2.0-3.7cm) LVDs2.7 (2.5-4.0cm)LA (MM) (1.9-4.0cm)Aortic Cusp Exc1.7 (1.5-2.0cm) EF (%) 60.0 (55-70%)Rt. Atrium2.7 (1.9-4.0cm)Asc. Aorta cm IVSd1.0 (0.7-1.1cm)RV (D) (1.8-2.4cm) PWd0.8 (0.7-1.1cm) Mitral Valve MitralMitral Stenosis E wave0.70m/sMV Mean GR.mmHg A wave1.30m/sMV Peak GR.mmHg E/A ratio0.52D MVAcm2 Aortic Valve Aortic ValveAortic Stenosis V11.80m/John Mean GR.7mmHg V21.80m/John Peak GR.13mmHg LVOT Diameter2.2 (1.8-2.4cm)Doppler AVA3.80cm2 Pulmonic Valve V21.20m/s Tricuspid Valve TR Velocity2.80m/s [id number] Other Information Quality : Technically LimitedRhythm : Technically limited study due to pt is ALOC. Conclusion lvef 65% moderate LVH grade 1 diastolic dysfunction normal RV functoin pacing lead in RA noted? cannot rule out thrombus normla atria no severe valve abnormalities noted L sided pleural effusion noted
--- NOTE | 2024-10-07 08:43 | DVH ---
Exam: US CHEST ULTRASOUND Clinical History: EVALUATE PLEURAL EFFUSION FOR POSSIBLE THORACENTESIS Comparison: CT CT ANGIO CHEST CONTRAST on DOS: 10/06/24, XY CHEST XRAY 1 VIEW on DOS: 10/05/24, XY CHES T PORTABLE on DOS: 08/24/22, XY CHEST PORTABLE on DOS: 08/21/22, XY CHEST PORTABLE on DOS: 08/19/22 Technique: Targeted sonographic evaluation of the soft tissues of the bilateral chest was obtained utilizing gr ayscale and color Doppler imaging. Findings/Impression: Small bilateral pleural effusions.
--- NOTE | 2024-10-07 08:58 | ECG ---
[facility] Test Date: 2024-10-05 Test Time: 22:24:09 Pat Name: TERRELL SORTO Department: [facility] ED Patient ID: [facility]-[id number] Room: 0215T Gender: F Probation And Parole Officer: HEATH : 1935 Requested By: KATHLEEN GOMEZ Order Number: [id number] Reading MD: Tyrone Moraes Measurements Intervals [place] Rate: 89 P: 68 MD: 141 QRS: 51 QRSD: 95 T: 212 QT: 394 QTc: 480 Interpretive Statements Sinus rhythm Probable LVH with secondary repol abnrm Abnormal T, probable ischemia, anterior leads Baseline wander in lead(s) II,III,aVF Electronically Signed On 10-09-2024 18:35:57 PDT by Tyrone Moraes Please click the below link to view image of tracing.
[2024-10-07] MEDS: LOSARTAN POTASSIUM 25 MG TAB PO SCH (11:44)
--- NOTE | 2024-10-07 18:28 | DVHPN2 ---
Subjective Patient awake alert nonverbal Reviewed: Care Plan Changes from previous H/P or p: No Changes General: Per HPI Objective Vitals Vital Signs Date Time Temp Pulse Resp B/P (MAP) Pulse Ox O2 Delivery O2 Flow Rate FiO2 10/07/24 18:02 87 10/07/24 13:18 155/73 10/07/24 12:56 16 100 10/07/24 12:50 Nasal Cannula 2.0 10/07/24 12:50 28 10/07/24 12:35 97.6 97.6 Intake/Output Intake and Output 10/07/24 07:00 Intake Total 825.0 ml Output Total 2500 ml Balance -1675.0 ml Intake IV Total 825.0 ml Output Urine Total 2500 ml # Bowel Movements 1 Exam GEN: Nonverbal, awake alert, unable to determine orientation HEENT: NC/AT; MMM. CV: RRR, no m/r/g. LUNGS: CTAB, no w/r/c. On nasal cannula ABD: Soft, NT/ND, NBS, no masses or organomegaly. Peg tube, Bolivar, EXT: skin Warm, well perfused. no rashes. No clubbing, cyanosis, or edema. NEURO: Nonverbal, not following commands unable to assess neurological function Medications Current Medications Medications Dose Ordered Sig/Delio Route Start Time Stop Time Status Last Admin Dose Admin Vancomycin HCl 0 ml @ 0 mls/hr UD IV 10/05/24 21:45 Albuterol 2.5 mg Q6HWA [facility] 10/05/24 21:45 10/07/24 12:55 2.5 MG Ipratropium [place] 0.5 mg Q6HWA [facility] 10/05/24 21:45 10/07/24 12:55 0.5 MG Carvedilol 6.25 mg Q12HR PO 10/05/24 22:00 10/07/24 11:43 6.25 MG Acetaminophen 500 mg Q4HPRN PRN PO 10/05/24 21:45 Furosemide 20 mg DAILY IV 10/06/24 10:00 10/07/24 11:42 20 MG Enoxaparin Sodium 40 mg DAILY SC 10/06/24 10:00 10/07/24 11:43 40 MG Enteral Nutritional Formula 1,000 ml 40ML/HR GT 10/06/24 08:45 10/06/24 13:40 1,000 ML Losartan Potassium 25 mg DAILY PO 10/07/24 10:00 10/07/24 11:44 25 MG Vancomycin HCl 250 ml @ 200 mls/hr DAILY@0200 IV 10/07/24 02:00 10/07/24 03:39 200 MLS/HR Cefepime HCl 50 ml @ 12.5 mls/hr Q8HR IV 10/06/24 22:00 10/07/24 14:55 12.5 MLS/HR Laboratory Results Laboratory Tests 10/06/24 06:34 10/07/24 06:35 Urinalysis Test 10/05/24 20:12 Urine Color Yellow (Yellow) Urine Clarity Clear (Clear) Urine pH 6.0 (5.0-9.0) Urine Specific [place] 1.019 (1.001-1.035) Urine Protein 1+ (Negative) H Urine Ketones Trace (Negative) Urine Blood 3+ /uL (Negative) H Urine Nitrite Negative (Negative) Urine Bilirubin Negative (Negative) Urine Urobilinogen Normal mg/dL (Negative) Urine Leukocyte Esterase Trace /uL (Negative) Urine RBC 271 /hpf (0 - 4) Urine Microscopic WBC 8 /HPF (0-5) H Urine Squamous Epithelial Cells None seen /hpf (<5) Urine Calcium Oxalate Crystals Few (None Seen) Urine Bacteria None seen /hpf (None Seen) Urine Mucus Few (None Seen) Urine Glucose Normal mg/dL (Normal) Microbiology Microbiology Date/Time Source Procedure Growth Status 10/05/24 22:50 Nose MRSA Screen - Final Methicillin Resistant S.aureus Complete 10/05/24 20:12 Voided Urine Urine Culture - Preliminary Resulted 10/05/24 19:37 Blood Blood Culture - Preliminary NO GROWTH AFTER 24 HOURS OF INCUBATION. Resulted Labs and/or images reviewed: Labs reviewed by me, Image(s) reviewed by me Assessment/Plan Assessment/Plan 89-year-old female with hypertension, dementia, bed-bound status, failure to thrive status post G-tube, recent pneumonia who was biba with a chief complaint of shortness of breaths and cough. Patient is A&O times 0, likely baseline. Per son Mr Lanier, over the phone, patient was recently hospitalized at [facility] for aspiration pneumonia and was discharged after a week earlier this morning, patient went home and started having cough with mucus which was dark brown/blood-tinged, she was having difficulty breathing, patient also had lower extremity swelling, she took amoxicillin earlier this morning. Patient was also running low-grade fever at 99 F. family decided to call 911 and patient was brought to the ER. 10/07: Continuing treatment with IV antibiotics. Nasal MRSA is positive, Acute on chronic metabolic encephalopathy, likely due to pneumonia Aspiration pneumonia Pneumonia, likely due to Gram-positive/Gram-negative/viral Hypertensive urgency NSTEMI likely due to above Sirs secondary to Likely aspiration pneumonia with parapneumonic effusion Gram-positive and Gram-negative pneumonia Acute hypoxic respiratory failure secondary to above Likely acute urinary retention Macrocytic anemia Dementia ? Unspecified Bed-bound status Failure to thrive status post PEG tube placement Ruled out DVT moderate right-sided pleural effusion with small left side pleural effusion Plan: Vancomycin Cefepime IV fluids Continue PEG tube feeds Nasal MRSA Sputum/blood culture DIET: Glucerna through G-tube DVT PROPHYLAXIS: Lovenox CODE STATUS: Goal of care discussed for more than 18 minutes, DNR DISPOSITION: Med/surge DNR DNI Plan discussed with: Other Date of Service: Oct 07, 2024 Billing Provider: ERIC VAUGHN MD Common Visit Codes: [id number] INP/OBS CARE(HIGH) ERIC VAUGHN MD Oct 07, 2024 18:28
[2024-10-07 19:35] LABS: Alanine Aminotransferase 12 U/L (7-40); Albumin 3.9 g/dL (3.2-4.8); Alkaline Phosphatase 68 U/L (46-116); Anion Gap 12 (5-15); BUN/Creatinine Ratio 20.3 (10.0-20.0); Blood Urea Nitrogen 13 mg/dL (9-23); Calcium 9.8 mg/dL (8.7-10.4); Carbon Dioxide 29 mmol/L (20-31); Chloride 102 mmol/L (98-107); Magnesium 2.3 mg/dL (1.6-2.6); Sodium 143 mmol/L (136-145); Total Protein 6.7 g/dL (5.7-8.2)
[2024-10-07 19:36] LABS: Bilirubin, Total 0.2 mg/dL (0.2-1.0); Glucose 147 mg/dL (74-106); Potassium 3.4 mmol/L (3.5-5.1)
[2024-10-07] MEDS: VALSARTAN 80 MG TAB PO ONE (19:51)
[2024-10-08] VITALS (14 sets, daily range): BP systolic 106–157; BP diastolic 58–79; PULSE 72–128; RESP 14–20; TEMP 96.5–97.8; O2SAT 77–100
[2024-10-08 06:50] LABS: Hematocrit 39.4 % (36.0-46.0); Hemoglobin 13.3 g/dL (12.2-16.2); Mean Corpuscular Hemoglobin 32.3 pg (28.0-32.0); Mean Corpuscular Volume 95.8 fL (80.0-100.0); Nucleated Red Blood Cells % 0.2 %
[2024-10-08 07:03] LABS: Anion Gap 8 (5-15); Calcium 9.3 mg/dL (8.7-10.4); Chloride 105 mmol/L (98-107)
[2024-10-08 07:09] LABS: BUN/Creatinine Ratio 29.3 (10.0-20.0); Blood Urea Nitrogen 17 mg/dL (9-23)
[2024-10-08 07:22] LABS: Carbon Dioxide 36 mmol/L (20-31); Glucose 151 mg/dL (74-106); Potassium 3.4 mmol/L (3.5-5.1); Sodium 149 mmol/L (136-145)
[2024-10-08] MEDS: VALSARTAN 80 MG TAB PO SCH (10:19)
--- NOTE | 2024-10-08 12:45 | DVHPN2 ---
Subjective Patient awake alert nonverbal Reviewed: Care Plan Changes from previous H/P or p: No Changes General: Per HPI Objective Vitals Vital Signs Date Time Temp Pulse Resp B/P (MAP) Pulse Ox O2 Delivery O2 Flow Rate FiO2 10/08/24 11:17 72 16 99 10/08/24 11:07 Nasal Cannula 2.0 10/08/24 11:07 28 10/08/24 10:19 160/85 10/08/24 05:00 97.0 97.0 Intake/Output Intake and Output 10/08/24 07:00 Intake Total 50 ml Output Total 1100 ml Balance -1050 ml Intake IV Total 50 ml Output Urine Total 1100 ml # Bowel Movements 2 Exam GEN: Nonverbal, awake alert, unable to determine orientation HEENT: NC/AT; MMM. CV: RRR, no m/r/g. LUNGS: CTAB, no w/r/c. On nasal cannula ABD: Soft, NT/ND, NBS, no masses or organomegaly. Peg tube, Bolivar, EXT: skin Warm, well perfused. no rashes. No clubbing, cyanosis, or edema. NEURO: Nonverbal, not following commands unable to assess neurological function Medications Current Medications Medications Dose Ordered Sig/Delio Route Start Time Stop Time Status Last Admin Dose Admin Vancomycin HCl 0 ml @ 0 mls/hr UD IV 10/05/24 21:45 Albuterol 2.5 mg Q6HWA [facility] [place] 10/05/24 21:45 10/08/24 11:07 2.5 MG Ipratropium [place] 0.5 mg Q6HWA [facility] [place] 10/05/24 21:45 10/08/24 11:07 0.5 MG Carvedilol 6.25 mg Q12HR PO 10/05/24 22:00 10/08/24 10:19 6.25 MG Acetaminophen 500 mg Q4HPRN PRN PO 10/05/24 21:45 Furosemide 20 mg DAILY IV 10/06/24 10:00 10/08/24 10:18 20 MG Enoxaparin Sodium 40 mg DAILY SC 10/06/24 10:00 10/08/24 10:16 40 MG Enteral Nutritional Formula 1,000 ml 40ML/HR GT 10/06/24 08:45 10/08/24 02:35 1,000 ML Vancomycin HCl 250 ml @ 200 mls/hr DAILY@0200 IV 10/07/24 02:00 10/08/24 02:04 200 MLS/HR Cefepime HCl 50 ml @ 12.5 mls/hr Q8HR IV 10/06/24 22:00 10/08/24 06:13 12.5 MLS/HR Valsartan 160 mg DAILY PO 10/08/24 10:00 10/08/24 10:19 160 MG Laboratory Results Laboratory Tests 10/08/24 06:00 Chemistry Test 10/08/24 06:00 Calcium Level 9.3 mg/dL (8.7-10.4) Urinalysis Test 10/05/24 20:12 Urine Color Yellow (Yellow) Urine Clarity Clear (Clear) Urine pH 6.0 (5.0-9.0) Urine Specific [place] 1.019 (1.001-1.035) Urine Protein 1+ (Negative) H Urine Ketones Trace (Negative) Urine Blood 3+ /uL (Negative) H Urine Nitrite Negative (Negative) Urine Bilirubin Negative (Negative) Urine Urobilinogen Normal mg/dL (Negative) Urine Leukocyte Esterase Trace /uL (Negative) Urine RBC 271 /hpf (0 - 4) Urine Microscopic WBC 8 /HPF (0-5) H Urine Squamous Epithelial Cells None seen /hpf (<5) Urine Calcium Oxalate Crystals Few (None Seen) Urine Bacteria None seen /hpf (None Seen) Urine Mucus Few (None Seen) Urine Glucose Normal mg/dL (Normal) Microbiology Microbiology Date/Time Source Procedure Growth Status 10/05/24 22:50 Nose MRSA Screen - Final Methicillin Resistant S.aureus Complete 10/05/24 20:12 Voided Urine Urine Culture - Preliminary Resulted 10/05/24 19:37 Blood Blood Culture - Preliminary NO GROWTH AFTER 48 HOURS OF INCUBATION. Resulted Labs and/or images reviewed: Labs reviewed by me, Image(s) reviewed by me Assessment/Plan Assessment/Plan 89-year-old female with hypertension, dementia, bed-bound status, failure to thrive status post G-tube, recent pneumonia who was biba with a chief complaint of shortness of breaths and cough. Patient is A&O times 0, likely baseline. Per son Mr Lanier, over the phone, patient was recently hospitalized at [facility] for aspiration pneumonia and was discharged after a week earlier this morning, patient went home and started having cough with mucus which was dark brown/blood-tinged, she was having difficulty breathing, patient also had lower extremity swelling, she took amoxicillin earlier this morning. Patient was also running low-grade fever at 99 F. family decided to call 911 and patient was brought to the ER. 10/07: Continuing treatment with IV antibiotics. Nasal MRSA is positive, 10/08: Patient continue IV antibiotics for aspiration pneumonia/community- acquired pneumonia. Nasal MRSA we will use Bactroban nares for 3 days. Bicarb going up we will get ABG. May need BiPAP, high-risk worsening aspiration. Poor prognosis. Patient remains nonverbal. Breath sounds are decreased diffusely, legs are contracted, Bolivar with good urine output. -ABG shows hypercarbia we will start BiPAP, we will discuss with patient's family. suction mouth prior to bipap. -update patient had rapid response called after hours. Patient was in critical condition due to which she due to acute worsening of her chronic conditions, see DC summary. Acute on chronic metabolic encephalopathy, likely due to pneumonia Aspiration pneumonia Pneumonia, likely due to Gram-positive/Gram-negative/viral Hypertensive urgency NSTEMI likely due to above Sirs secondary to Likely aspiration pneumonia with parapneumonic effusion Gram-positive and Gram-negative pneumonia Acute hypoxic respiratory failure secondary to above Likely acute urinary retention Macrocytic anemia Dementia ? Unspecified Bed-bound status Failure to thrive status post PEG tube placement Ruled out DVT moderate right-sided pleural effusion with small left side pleural effusion Plan: Vancomycin Cefepime IV fluids Continue PEG tube feeds Nasal MRSA Sputum/blood culture DIET: Glucerna through G-tube DVT PROPHYLAXIS: Lovenox CODE STATUS: Goal of care discussed for more than 18 minutes, DNR DISPOSITION: Med/surge DNR DNI Plan discussed with: Patient Date of Service: Oct 08, 2024 Billing Provider: ERIC VAUGHN MD Common Visit Codes: NOT BILLABLE ERIC VAUGHN MD Oct 08, 2024 12:45
[2024-10-08 13:26] LABS: Base Excess 12.5 mmol/L (-2.0-3.0)
--- NOTE | 2024-10-09 11:13 | DVHDS2 ---
Discharge Summary Date of Admission Oct 05, 2024 at 21:13 Date of Discharge: Oct 08, 2024 Labs/Diagnostic Data: Laboratory Results Test 10/08/24 19:25 10/08/24 13:00 10/08/24 06:00 10/07/24 19:35 Blood Gas Specimen Type Arterial Blood Gas Sample Site Right radial Blood Gas Patient Temperature 37.0 Arterial Blood Date Drawn [id number] Arterial Blood pH 7.067 (7.350-7.450) Arterial Blood Partial Pressure CO2 > 174.5 mmHg (32.0-45.0) Arterial Blood Partial Pressure O2 51.9 mmHg (83.0-108.0) Arterial Blood Oxygen Saturation 69.8 % (94.0-98.0) Arterial Blood Oxyhemoglobin 69.2 % (94.0-98.0) Arterial Blood Carboxyhemoglobin 0.4 % (0.5-1.5) Arterial Blood Methemoglobin 0.5 % (0.0-1.5) [place] Test Modified Blood Gas Total Hemoglobin 14.40 g/dL (12.0-16.0) Blood Gas Modality Mask - bipap FiO2 % 100.0 Blood Gas EPAP 5 Blood Gas IPAP 10 Blood Gas Critical Value Read Back Yes Blood Gas Notified Whom Bethel archer Blood Gas Notified Time [id number] Blood Gas Notified By Rt ruiz marin Arterial Blood HCO3 41.4 mmol/L (21.0-28.0) Arterial Blood Base Excess 12.5 mmol/L (-2.0-3.0) Blood Gas Liter Flow 2.00 White Blood Count 6.8 10^3/uL (4.4-10.8) Red Blood Count 4.11 10^6/uL (4.0-5.20) Hemoglobin 13.3 g/dL (12.2-16.2) Hematocrit 39.4 % (36.0-46.0) Mean Corpuscular Volume 95.8 fL (80.0-100.0) Mean Corpuscular Hemoglobin 32.3 pg (28.0-32.0) Mean Corpuscular Hemoglobin Concent 33.7 g/dL (32.0-36.0) Red Cell Distribution Width 12.9 % (11.8-14.3) Platelet Count 227 10^3/uL (140-450) Mean Platelet Volume 8.1 fL (6.9-10.8) Neutrophils (%) (Auto) 76.5 % (37.0-80.0) Lymphocytes (%) (Auto) 14.4 % (10.0-50.0) Monocytes (%) (Auto) 6.6 % (0.0-12.0) Eosinophils (%) (Auto) 2.2 % (0.0-7.0) Basophils (%) (Auto) 0.3 % (0.0-2.0) Neutrophils # (Auto) 5.2 10 ^3/uL (1.6-8.6) Lymphocytes # (Auto) 1.0 10 ^3/uL (0.4-5.4) Monocytes # (Auto) 0.4 10 ^3/uL (0-1.3) Eosinophils # (Auto) 0.2 10 ^3/uL (0-0.8) Basophils # (Auto) 0 10 ^3/uL (0-0.2) Nucleated Red Blood Cells 0.2 % Sodium Level 149 mmol/L (136-145) Potassium Level 3.4 mmol/L (3.5-5.1) Chloride Level 105 mmol/L (98-107) Carbon Dioxide Level 36 mmol/L (20-31) Anion Gap 8 (5-15) Blood Urea Nitrogen 17 mg/dL (9-23) Creatinine 0.58 mg/dL (0.550-1.02) Glomerular Filtration Rate Calc 87 mL/min (>90) BUN/Creatinine Ratio 29.3 (10.0-20.0) Serum Glucose 151 mg/dL (74-106) Calcium Level 9.3 mg/dL (8.7-10.4) Lactic Acid Level 1.0 mmol/L (0.4-2.0) Ammonia < 10 umol/L (11-32) Test 10/07/24 06:35 10/06/24 06:34 10/05/24 22:03 10/05/24 21:55 Phosphorus Level 3.0 mg/dL (2.4-5.1) Magnesium Level 2.3 mg/dL (1.6-2.6) Total Bilirubin 0.2 mg/dL (0.2-1.0) Aspartate Amino Transferase (AST) 24 U/L (13-40) Alanine Aminotransferase (ALT) 12 U/L (7-40) Alkaline Phosphatase 68 U/L (46-116) Total Protein 6.7 g/dL (5.7-8.2) Albumin 3.9 g/dL (3.2-4.8) Hemoglobin A1c 5.5 % A1C (<5.7) Vitamin B12 Level 1991 pg/mL (211-911) Vitamin D 25-Hydroxy 21.7 ng/mL (30.0-100) Folic Acid 39.16 ng/mL (>5.38) Thyroid Stimulating Hormone (TSH) 1.28 uIU/mL (0.55-4.78) Troponin I High Sensitivity 55 ng/L (</=34) Influenza Type A Antigen Negative (Negative) Influenza Type B Antigen Negative (Negative) SARS-CoV-2 Antigen (Rapid) Negative (NEGATIVE) Test 10/05/24 20:12 10/05/24 19:09 Urine Color Yellow (Yellow) Urine Clarity Clear (Clear) Urine pH 6.0 (5.0-9.0) Urine Specific [place] 1.019 (1.001-1.035) Urine Protein 1+ (Negative) Urine Ketones Trace (Negative) Urine Blood 3+ /uL (Negative) Urine Nitrite Negative (Negative) Urine Bilirubin Negative (Negative) Urine Urobilinogen Normal mg/dL (Negative) Urine Leukocyte Esterase Trace /uL (Negative) Urine RBC 271 /hpf (0 - 4) Urine Microscopic WBC 8 /HPF (0-5) Urine Squamous Epithelial Cells None seen /hpf (<5) Urine Calcium Oxalate Crystals Few (None Seen) Urine Bacteria None seen /hpf (None Seen) Urine Mucus Few (None Seen) Urine Glucose Normal mg/dL (Normal) Prothrombin Time 10.3 sec (9.3-11.8) Prothrombin Time INR 0.97 (0.9-1.15) Activated Partial Thromboplast Time 25.1 SEC (24.5-34.5) Direct Bilirubin < 0.1 mg/dL (<0.3) B-Type Natriuretic Peptide 647.00 pg/mL (0-100) Plasma/Serum Blood Alcohol < 3.0 mg/dL (<10) Other Laboratory Tests 10/08/24 06:00 Brief Hx & Hospital Course: 89-year-old female with hypertension, dementia, bed-bound status, failure to thrive status post G-tube, recent pneumonia who was biba with a chief complaint of shortness of breaths and cough. Patient is A&O times 0, likely baseline. Per son Mr Lanier, over the phone, patient was recently hospitalized at [facility] for aspiration pneumonia and was discharged after a week earlier this morning, patient went home and started having cough with mucus which was dark brown/blood-tinged, she was having difficulty breathing, patient also had lower extremity swelling, she took amoxicillin earlier this morning. Patient was also running low-grade fever at 99 F. family decided to call 911 and patient was brought to the ER. 10/07: Continuing treatment with IV antibiotics. Nasal MRSA is positive, 10/08: Patient continue IV antibiotics for aspiration pneumonia/community- acquired pneumonia. Nasal MRSA we will use Bactroban nares for 3 days. Bicarb going up we will get ABG. May need BiPAP, high-risk worsening aspiration. Poor prognosis. Patient remains nonverbal. Breath sounds are decreased diffusely, legs are contracted, [place] with good urine output. -ABG shows hypercarbia we will start BiPAP, we will discuss with patient's family. suction mouth prior to bipap. - rapid response was called after hours, patient had acute worsening of status respiratory failure resulting in respiratory arrest from likely aspiration pneumonia. Patient was pronounced 1953, as it was no pulse despite BiPAP, patient is DNR DNI status and no heroic measures or code blue initiated. Patient due to acute worsening of chronic issues with multiple risks factors. Refer to diagnosis below. Condolences offered to patient's family, postmortem care performed by nursing staff. 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 intolerant Do not resuscitate, do not intubate ,, advance directive Hypertensive urgency NSTEMI likely due to above Sirs secondary to Likely aspiration pneumonia with parapneumonic effusion Gram-positive and Gram-negative pneumonia Likely acute urinary retention Macrocytic anemia Bed-bound status Failure to thrive status post PEG tube placement Ruled out DVT Condition at Discharge: Unstable Final Diagnosis/Problems List acute hypoxic and hypercapnic respiratory failure due to below Aspiration pneumonia, high-risk with chronic PEG tube feeds community-acquired Pneumonia, likely due to Gram-positive/Gram-negative Advanced dementia, 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 intolerant Do not resuscitate, do not intubate ,, advance directive Hypertensive urgency NSTEMI likely due to above Sirs secondary to Likely aspiration pneumonia with parapneumonic effusion Gram-positive and Gram-negative pneumonia Likely acute urinary retention Macrocytic anemia Bed-bound status Failure to thrive status post PEG tube placement Ruled out DVT Discharge Disposition: at Hospital Discharge Instruct/Medications Scheduled Acetaminophen W/ Codeine (Tylenol W/Cod Elixir), 500 MG PO ACHS, (Reported) Discharge Statement: "Patient was advised to return to the ER or call 911 if any headaches, dizziness, shortness of breath, chest pain, abdominal pain, bleeding, fevers, or worsening of medical condition. Patient was counseled about treatment plan, medications, possible side effects, patientverbalized understanding. All questions were answered to the best of my ability. This discharge took greater then 30 minutes in planning, reviewing documentation, counseling the patient, and discussing with other team members." ASSESSMENT ASSESSMENT Assessment Date of Service: Oct 08, 2024 Billing Provider: ERIC VAUGHN MD Common Visit Codes: 04201-TOX/OBS DISCH DAY >30min ERIC VAUGHN MD Oct 09, 2024 11:13
== END 2024-10-08 20:00 ==
LOC: EDBD 18:41 → ER 18:41 → OVERFLOW 21:13 → TELE-CENTR 10-07 21:28
PROVIDERS: ADMIT Student in an Organized Health Care Education/Training Program; ATTEND Student in an Organized Health Care Education/Training Program
PROC: 5A09357 Assistance with Respiratory Ventilation, Less than 24 Consecutive Hours, Continuous Positive Airway Pressure (ICD-10-PCS; principal; 2024-10-08)
DX: I21.4 Non-ST elevation (NSTEMI) myocardial infarction (principal); G93.41 Metabolic encephalopathy; J15.69 Pneumonia due to other Gram-negative bacteria; J96.01 Acute respiratory failure with hypoxia; J96.02 Acute respiratory failure with hypercapnia; J69.0 Pneumonitis due to inhalation of food and vomit; J15.9 Unspecified bacterial pneumonia; R65.10 Systemic inflammatory response syndrome (SIRS) of non-infectious origin without acute organ dysfunction; I10 Essential (primary) hypertension; Z66 Do not resuscitate; D53.9 Nutritional anemia, unspecified; R33.9 Retention of urine, unspecified; I16.0 Hypertensive urgency; F02.80 Dementia in other diseases classified elsewhere, unspecified severity, without behavioral disturbance, psychotic disturbance, mood disturbance, and anxiety; G30.9 Alzheimer's disease, unspecified; Z74.01 Bed confinement status; Z93.1 Gastrostomy status; Z79.899 Other long term (current) drug therapy
CPT/HCPCS: 36415; 36600; 71045; 71275; 74018; 74176; 76604; 80048; 80053; 80076; 80320; 81001; 82140; 82306; 82565; 82607; 82746; 82805; 83036; 83605; 83735; 83880; 84100; 84443; 84484; 85025; 85610; 85730; 87040; 87081; 87086; 87426; 87804; 93005; 93306; 93970; 94640; 94660; 96365; 96375; 99291; G0378; J3490